=== PATIENT | male | born 1965 | race African-American/Black ===

== ENCOUNTER 2019-01-15 04:56 | Inpatient (IN) | payer SELFPAY ==
[2019-01-15] VITALS (11 sets, daily range): BP systolic 134–180; BP diastolic 79–98
[~2019-01-15] VITALS: Ht 182.9 cm; Wt 90.7 kg
--- NOTE | 2019-01-15 05:11 | PHYS DOC ---
Adult General Chief Complaint Chief Complaint: HEMATEMESIS/VOMITING BLOOD HPI HPI Patient is a 53 year old male presents with chief complaint of abdominal pain and throwing up. Apparently the patient ate some tuna but an hour later began to have some cramping epigastric pain radiating diffusely he threw up twice he thr ew up the tune and then there was some blood at the very end of the emesis. He said it would not have even come close to filling up a whole cup it was less than that but it look like a lot to him. Pain is persistent he actually thought he was given have diarrhea reset on the toilet and was straining very hard and some brown stool came out but then there was also some blood on the toilet paper when he wiped. Occasional alcohol denies past medical history denies any daily medications. (SHIRA TAI MD) Review of Systems Review of Systems Constitutional: Denies fever or chills [] Eyes: Denies change in visual acuity, redness, or eye pain [] HENT: Denies nasal congestion or sore throat [] Neurologic: Denies headache, focal weakness or sensory changes [] Endocrine: Denies polyuria or polydipsia [] All other systems were reviewed and found to be within normal limits, except as documented in this note. (SHIRA TAI MD) Current Medications Current Medications Current Medications Medications (Trade) Dose Ordered Sig/Jim Start Time Stop Time Status Last Admin Dose Admin Ciprofloxacin/ Dextrose 200 ml @ 200 mls/hr 1X ONCE 01/15/19 08:45 01/15/19 08:46 DC Fentanyl Citrate (Fentanyl 2ml Vial) 50 mcg 1X ONCE 01/15/19 05:30 01/15/19 05:34 DC 01/15/19 05:42 50 MCG Metronidazole 100 ml @ 100 mls/hr 1X ONCE 01/15/19 08:45 01/15/19 08:46 DC Morphine Sulfate (Morphine Sulfate) 4 mg 1X ONCE 01/15/19 07:45 01/15/19 07:46 DC 01/15/19 07:54 4 MG Multi-Ingredient Mouthwash/Gargle (Gi Cocktail) 20 ml 1X ONCE 01/15/19 05:30 01/15/19 05:34 DC 01/15/19 05:44 20 ML Ondansetron HCl (Zofran) 4 mg 1X ONCE 01/15/19 05:30 01/15/19 05:34 DC 01/15/19 05:40 4 MG Pantoprazole Sodium (PROTONIX VIAL for IV PUSH) 40 mg 1X ONCE 01/15/19 05:45 01/15/19 05:48 DC 01/15/19 06:30 40 MG Piperacillin Sod/ Tazobactam Sod (Zosyn Per Pharmacy) 1 each PRN DAILY PRN 01/15/19 08:45 UNV Piperacillin Sod/ Tazobactam Sod 3.375 gm/Sodium Chloride 50 ml @ 100 mls/hr 1X ONCE 01/15/19 09:00 01/15/19 09:29 (LYNDA MORALES MD) Allergies Allergies Allergies Coded Allergies Type Severity Reaction Last Updated Verified Fish Containing Products Allergy Intermediate 01/15/19 Yes Iodine and Iodide Containing Produc Allergy Intermediate 01/15/19 Yes shellfish derived Allergy Intermediate 01/15/19 Yes (LYNDA MORALES MD) Physical Exam Physical Exam Constitutional: Well developed, well nourished, mild distress, non-toxic appearance. [] HENT: Normocephalic, atraumatic, bilateral external ears normal, oropharynx moist, no oral exudates, nose normal. [] Eyes: PERRLA, EOMI, conjunctiva normal, no discharge. [] Neck: Normal range of motion, no tenderness, supple, no stridor. [] Cardiovascular:Heart rate regular rhythm, no murmur [] Lungs & Thorax: Bilateral breath sounds clear to auscultation [] Abdomen: Bowel sounds normal, soft, epigastric and right upper quadrant tenderness, no masses, no pulsatile masses. [] Rectal exam does show a visualized external hemorrhoid that looks like it may have recently bled digital exam does return a small amount of brownish blood- tinged stool. Sent to lab for testing Skin: Warm, dry, no erythema, no rash. [] Back: No tenderness, no CVA tenderness. [] Extremities: No tenderness, no cyanosis, no clubbing, ROM intact, no edema. [] Neurologic: Alert and oriented X 3, normal motor function, normal sensory function, no focal deficits noted. [] Psychologic: Affect normal, judgement normal, mood normal. [] (SHIRA TAI MD) Current Patient Data Vital Signs Vital Signs Date Time Temp Pulse Resp B/P (MAP) Pulse Ox O2 Delivery O2 Flow Rate FiO2 01/15/19 07:54 20 01/15/19 06:54 84 185/87 (119) 100 Room Air 01/15/19 05:00 98.5 98.5 (LYNDA MORALES MD) Lab Values Laboratory Tests Test 01/15/19 05:23 01/15/19 05:41 01/15/19 07:39 White Blood Count 8.8 x10^3/uL (4.0-11.0) Red Blood Count 4.77 x10^6/uL (4.30-5.70) Hemoglobin 14.8 g/dL (13.0-17.5) Hematocrit 43.0 % (39.0-53.0) Mean Corpuscular Volume 90 fL (79-100) Mean Corpuscular Hemoglobin 31 pg (25-35) Mean Corpuscular Hemoglobin Concent 35 g/dL (31-37) Red Cell Distribution Width 14.3 % (11.5-14.5) Platelet Count 284 x10^3/uL (140-400) Neutrophils (%) (Auto) 73 % (31-73) Lymphocytes (%) (Auto) 20 % (24-48) L Monocytes (%) (Auto) 6 % (0-9) Eosinophils (%) (Auto) 1 % (0-3) Basophils (%) (Auto) 1 % (0-3) Neutrophils # (Auto) 6.4 x10^3uL (1.8-7.7) Lymphocytes # (Auto) 1.7 x10^3/uL (1.0-4.8) Monocytes # (Auto) 0.5 x10^3/uL (0.0-1.1) Eosinophils # (Auto) 0.1 x10^3/uL (0.0-0.7) Basophils # (Auto) 0.0 x10^3/uL (0.0-0.2) Sodium Level 143 mmol/L (136-145) Potassium Level 3.6 mmol/L (3.5-5.1) Chloride Level 102 mmol/L (98-107) Carbon Dioxide Level 28 mmol/L (21-32) Anion Gap 13 (6-14) Blood Urea Nitrogen 14 mg/dL (8-26) Creatinine 0.9 mg/dL (0.7-1.3) Estimated GFR (Cockcroft-Gault) 106.4 BUN/Creatinine Ratio 16 (6-20) Glucose Level 122 mg/dL (70-99) H Calcium Level 9.5 mg/dL (8.5-10.1) Total Bilirubin 0.2 mg/dL (0.2-1.0) Aspartate Amino Transferase (AST) 8 U/L (15-37) L Alanine Aminotransferase (ALT) 26 U/L (16-63) Alkaline Phosphatase 63 U/L (46-116) Troponin I Quantitative < 0.017 ng/mL (0.000-0.055) Total Protein 7.3 g/dL (6.4-8.2) Albumin 4.2 g/dL (3.4-5.0) Albumin/Globulin Ratio 1.4 (1.0-1.7) Lipase 112 U/L (73-393) Stool Occult Blood Positive (NEG) Urine Collection Type Unknown Urine Color Yellow Urine Clarity Clear Urine pH 8.0 Urine Specific [place] 1.020 Urine Protein Negative mg/dL (NEG-TRACE) Urine Glucose (UA) Negative mg/dL (NEG) Urine Ketones (Stick) Negative mg/dL (NEG) Urine Blood Negative (NEG) Urine Nitrite Negative (NEG) Urine Bilirubin Negative (NEG) Urine Urobilinogen Dipstick 0.2 mg/dL (0.2 mg/dL) Urine Leukocyte Esterase Negative (NEG) Urine RBC 0 /HPF (0-2) Urine WBC Occ /HPF (0-4) Urine Amorphous Sediment Present /HPF Urine Bacteria 0 /HPF (0-FEW) Urine Opiates Screen Neg (NEG) Urine Methadone Screen Neg (NEG) Urine Barbiturates Neg (NEG) Urine Phencyclidine Screen Neg (NEG) Urine Amphetamine/Methamphetamine Neg (NEG) Urine Benzodiazepines Screen Neg (NEG) Urine Cocaine Screen Neg (NEG) Urine Cannabinoids Screen Pos (NEG) Urine Ethyl Alcohol Neg (NEG) Laboratory Tests 01/15/19 05:23 Laboratory Tests 01/15/19 05:23 (LYNDA MORALES MD) Lab Values Laboratory Tests Test 01/15/19 05:23 01/15/19 05:41 01/15/19 07:39 White Blood Count 8.8 x10^3/uL (4.0-11.0) Red Blood Count 4.77 x10^6/uL (4.30-5.70) Hemoglobin 14.8 g/dL (13.0-17.5) Hematocrit 43.0 % (39.0-53.0) Mean Corpuscular Volume 90 fL (79-100) Mean Corpuscular Hemoglobin 31 pg (25-35) Mean Corpuscular Hemoglobin Concent 35 g/dL (31-37) Red Cell Distribution Width 14.3 % (11.5-14.5) Platelet Count 284 x10^3/uL (140-400) Neutrophils (%) (Auto) 73 % (31-73) Lymphocytes (%) (Auto) 20 % (24-48) L Monocytes (%) (Auto) 6 % (0-9) Eosinophils (%) (Auto) 1 % (0-3) Basophils (%) (Auto) 1 % (0-3) Neutrophils # (Auto) 6.4 x10^3uL (1.8-7.7) Lymphocytes # (Auto) 1.7 x10^3/uL (1.0-4.8) Monocytes # (Auto) 0.5 x10^3/uL (0.0-1.1) Eosinophils # (Auto) 0.1 x10^3/uL (0.0-0.7) Basophils # (Auto) 0.0 x10^3/uL (0.0-0.2) Sodium Level 143 mmol/L (136-145) Potassium Level 3.6 mmol/L (3.5-5.1) Chloride Level 102 mmol/L (98-107) Carbon Dioxide Level 28 mmol/L (21-32) Anion Gap 13 (6-14) Blood Urea Nitrogen 14 mg/dL (8-26) Creatinine 0.9 mg/dL (0.7-1.3) Estimated GFR (Cockcroft-Gault) 106.4 BUN/Creatinine Ratio 16 (6-20) Glucose Level 122 mg/dL (70-99) H Calcium Level 9.5 mg/dL (8.5-10.1) Total Bilirubin 0.2 mg/dL (0.2-1.0) Aspartate Amino Transferase (AST) 8 U/L (15-37) L Alanine Aminotransferase (ALT) 26 U/L (16-63) Alkaline Phosphatase 63 U/L (46-116) Troponin I Quantitative < 0.017 ng/mL (0.000-0.055) Total Protein 7.3 g/dL (6.4-8.2) Albumin 4.2 g/dL (3.4-5.0) Albumin/Globulin Ratio 1.4 (1.0-1.7) Lipase 112 U/L (73-393) Stool Occult Blood Positive (NEG) Urine Collection Type Unknown Urine Color Yellow Urine Clarity Clear Urine pH 8.0 Urine Specific [place] 1.020 Urine Protein Negative mg/dL (NEG-TRACE) Urine Glucose (UA) Negative mg/dL (NEG) Urine Ketones (Stick) Negative mg/dL (NEG) Urine Blood Negative (NEG) Urine Nitrite Negative (NEG) Urine Bilirubin Negative (NEG) Urine Urobilinogen Dipstick 0.2 mg/dL (0.2 mg/dL) Urine Leukocyte Esterase Negative (NEG) Urine RBC 0 /HPF (0-2) Urine WBC Occ /HPF (0-4) Urine Amorphous Sediment Present /HPF Urine Bacteria 0 /HPF (0-FEW) Urine Opiates Screen Neg (NEG) Urine Methadone Screen Neg (NEG) Urine Barbiturates Neg (NEG) Urine Phencyclidine Screen Neg (NEG) Urine Amphetamine/Methamphetamine Neg (NEG) Urine Benzodiazepines Screen Neg (NEG) Urine Cocaine Screen Neg (NEG) Urine Cannabinoids Screen Pos (NEG) Urine Ethyl Alcohol Neg (NEG) Laboratory Tests 01/15/19 05:23 Laboratory Tests 01/15/19 05:23 (SHIRA TAI MD) EKG EKG []Normal sinus rhythm rate of 83 there are no obvious acute ischemic changes noted nonspecific ST changes noted inferiorly borderline ST elevation in V1 and V2 but I don't feel that this meets criteria for ST elevation AR. (SHIRA TAI MD) Radiology/Procedures Radiology/Procedures [] (SHIRA TAI MD) Radiology/Procedures PROCEDURE: CT ABDOMEN PELVIS WO CONTRAST INDICATION: Abdomen pain with rectal bleeding COMPARISON: None. TECHNIQUE: Axial CT images obtained through the abdomen and pelvis without intravenous contrast. One or more of the following individualized dose reduction techniques were utilized for this examination: 1. Automated exposure control; 2. Adjustment of the mA and/or kV according to patient size; 3. Use of iterative reconstruction technique. FINDINGS: Minimal linear opacities lung bases, could be atelectasis. Abdominal aorta is not aneurysmal. Scattered calcified plaque. Cystic lesion within the liver measuring 45 mm. Small pericardial fluid. Low-density lesion right lobe of the liver which may be cystic as well. Small amount of high density material within the gallbladder, could be stones or sludge. No definite peripancreatic fluid collection. Limited evaluation of pancreas without contrast. Spleen not enlarged. Left-sided nonobstructive renal stone measuring 7 mm. Dilatation of the left extrarenal pelvis and ureter Urinary bladder is partially distended. The prostate appears prominent in size. Mild prominence of the right extrarenal pelvis to a lesser degree. Portion of the left-sided colon wall appears mildly prominent but not very distended in this region. No definite periappendiceal inflammation. No dilated loops of bowel to suggest obstruction. Degenerative changes the spine including at L4-5 where there is endplate sclerosis as well as disc protrusion and osteophyte formation. Pars defect at L4 on the right. Multilevel central canal neural foraminal stenosis. IMPRESSION: 1. Left-sided hydronephrosis and hydroureter without a definite radiopaque obstructive ureter stone. Some possible causes include recently passed ureter stone as well as a distal ureter stricture or lesion. 2. Nonobstructive left renal stone. 3. Portion of the left side of the colon wall appears prominent but this is in a region with lack of distention. Could be secondary to an area of contraction however if there is high clinical concern a mild colitis not excluded. 4. There is some high density material within the gallbladder which could be from sludge or stones. PROCEDURE: ABDOMEN LTD Ultrasound of the right upper quadrant abdomen 01/15/2019 CLINICAL HISTORY: Right upper quadrant abdominal pain. Abnormal appearance of the gallbladder on CT scan. TECHNIQUE: A real-time ultrasound examination of the right upper quadrant of the abdomen was performed. Multiple images were obtained. FINDINGS: Comparison is made to the patient's CT scan of the abdomen performed earlier today. The gallbladder is distended. Echogenic gallstones are seen within the gallbladder. The gallbladder wall is thickened measuring 6 mm in thickness. A 1.6 cm gallstone is seen in the neck of the gallbladder. The patient is tender with palpation of the ultrasound transducer over the region of the gallbladder (positive sonographic [place] sign). These findings correspond to the abnormality seen on the patient's CT scan. They are consistent with acute cholecystitis. The liver is normal in size. The measures 18.3 cm in length. A 4.6 cm cyst is seen within the left lobe of the liver. The common hepatic duct measures 6 mm in diameter which is within the upper limits of normal. The visualized portions of the pancreas and right kidney are within normal limits. No free fluid is seen. IMPRESSION: Findings consistent with acute cholecystitis. (LYNDA MORALES MD) Course & Med Decision Making Course & Med Decision Making Pertinent Labs and Imaging studies reviewed. (See chart for details) []53-year-old male no past medical history presenting with epigastric pain as well as concern for hematemesis by history it does not sound like that much we will get hemoglobin rectal exam and go from there. hb normal rectal hemorrhoid seen, some maroon georgette colored stool sample noted, could be from hemorrhoidal bleeding. given degree of pain, will get ct a/p to go from there s/o to [facility] pending ct, labs and final disposition. (SHIRA TAI MD) Course & Med Decision Making 9:00 AM: The patient's condition remains stable. He has been reexamined, and has diffuse abdominal tenderness to palpation, although it is most prominent in the right upper quadrant. He is noted to be hypertensive. He states his blood pressure is always high when he hasn't checked, but does not currently have a P CP, he states he has had a kidney stone in the past, although he has no CVA tenderness on repeat exam today. The exact etiology of his hydronephrosis on CT, and the acuity of this, it is unclear at this time. I discussed test results with the patient, discussed the case with the hospitalist, who will admit for further treatment. Gen. surgery on-call has been paged as well. The hospitalist requested Zosyn for antibiotic coverage (LYNDA MORALES MD) Dragon Disclaimer Dragon Disclaimer This electronic medical record was generated, in whole or in part, using a voice recognition dictation system. (SHIRA TAI MD) Departure Departure Impression: Primary Impression: Acute cholecystitis Additional Impressions: Hypertension Hydronephrosis Hematemesis Disposition: ADMITTED INPATIENT Admitting Physician: HIMS (LYNDA MORALES MD) Condition: STABLE Scripts Oxycodone/Apap 5-325 (PERCOCET 5-325 MG TABLET ) 1 Each Tablet 1 TAB PO PRN Q4HRS PRN for MILD-MODERATE PAIN, #25 TAB Prov: DARIA HAYES MD 01/16/19 Problem Qualifiers SHIRA TAI MD Jan 15, 2019 05:11 LYNDA MORALES MD Jan 15, 2019 07:33
[2019-01-15] MEDS ORDERED: ONDANSETRON PF 4 MG/2 ML VIAL. IV ONE (05:30)
[2019-01-15] MEDS ORDERED: fentaNYL PF VIAL 100 MCG/2 ML VIAL IV ONE (05:30)
[2019-01-15] MEDS ORDERED: LIDO:MAALOX 1:1 20 ML SINGLE DOSE. SWSW ONE (05:30)
[2019-01-15 05:43] LABS: BASO % 1 % (0-3); EOS # 0.1 x10^3/uL (0.0-0.7); EOS % 1 % (0-3); HEMOGLOBIN 14.8 g/dL (13.0-17.5); LYMPH # 1.7 x10^3/uL (1.0-4.8); LYMPH % 20 % (24-48); MEAN CORPUSCULAR HEMOGLOBIN 31 pg (25-35); MEAN CORPUSCULAR HGB CONC 35 g/dL (31-37); MEAN CORPUSCULAR VOLUME 90 fL (79-100); MONO # 0.5 x10^3/uL (0.0-1.1); MONO % 6 % (0-9); NEUT # 6.4 x10^3uL (1.8-7.7); NEUT % 73 % (31-73); PLATELET COUNT 284 x10^3/uL (140-400); RED BLOOD COUNT 4.77 x10^6/uL (4.30-5.70); RED CELL DISTRIBUTION WIDTH 14.3 % (11.5-14.5); WHITE BLOOD COUNT 8.8 x10^3/uL (4.0-11.0)
[2019-01-15] MEDS ORDERED: PANTOPRAZOLE IV PUSH 40 MG VIAL. IVP ONE (05:45)
[2019-01-15 05:52] LABS: CALCIUM 9.5 mg/dL (8.5-10.1); CREATININE 0.9 mg/dL (0.7-1.3); GFR 106.4; POTASSIUM 3.6 mmol/L (3.5-5.1)
--- NOTE | 2019-01-15 05:54 | EKG ---
[facility] [address] [place] [address] Test Date: 2019-01-15 Test Time: 05:29:30 Pat Name: IMAN MCCAIN Department: Room: Gender: M Office Support Clerk: : 1965 Requested By: SHIRA TAI Order Number: [id number] Reading MD: Measurements Intervals [place] Rate: 83 P: 76 FL: 164 QRS: 64 QRSD: 86 T: 59 QT: 382 QTc: 449 Interpretive Statements SINUS RHYTHM QRS(T) CONTOUR ABNORMALITY CONSIDER ANTEROSEPTAL MYOCARDIAL DAMAGE POSSIBLY ABNORMAL ECG RI6.01 Unconfirmed report No previous ECG available for comparison
[2019-01-15 05:59] LABS: ALBUMIN 4.2 g/dL (3.4-5.0); ALBUMIN/GLOBULIN RATIO 1.4 (1.0-1.7); TOTAL BILIRUBIN 0.2 mg/dL (0.2-1.0); TOTAL PROTEIN 7.3 g/dL (6.4-8.2)
[2019-01-15 06:02] LABS: FECAL OB PT POSITIVE (NEG)
--- NOTE | 2019-01-15 07:06 | RAD ---
INDICATION: Abdomen pain with rectal bleeding COMPARISON: None. TECHNIQUE: Axial CT images obtained through the abdomen and pelvis without intravenous contrast. One or more of the following individualized dose reduction techniques were utilized for this examination: 1. Automated exposure control; 2. Adjustment of the mA and/or kV according to patient size; 3. Use of iterative reconstruction technique. FINDINGS: Minimal linear opacities lung bases, could be atelectasis. Abdominal aorta is not aneurysmal. Scattered calcified plaque. Cystic lesion within the liver measuring 45 mm. Small pericardial fluid. Low-density lesion right lobe of the liver which may be cystic as well. Small amount of high density material within the gallbladder, could be stones or sludge. No definite peripancreatic fluid collection. Limited evaluation of pancreas without contrast. Spleen not enlarged. Left-sided nonobstructive renal stone measuring 7 mm. Dilatation of the left extrarenal pelvis and ureter Urinary bladder is partially distended. The prostate appears prominent in size. Mild prominence of the right extrarenal pelvis to a lesser degree. Portion of the left-sided colon wall appears mildly prominent but not very distended in this region. No definite periappendiceal inflammation. No dilated loops of bowel to suggest obstruction. Degenerative changes the spine including at L4-5 where there is endplate sclerosis as well as disc protrusion and osteophyte formation. Pars defect at L4 on the right. Multilevel central canal neural foraminal stenosis. IMPRESSION: 1. Left-sided hydronephrosis and hydroureter without a definite radiopaque obstructive ureter stone. Some possible causes include recently passed ureter stone as well as a distal ureter stricture or lesion. 2. Nonobstructive left renal stone. 3. Portion of the left side of the colon wall appears prominent but this is in a region with lack of distention. Could be secondary to an area of contraction however if there is high clinical concern a mild colitis not excluded. 4. There is some high density material within the gallbladder which could be from sludge or stones. Electronically signed by: Miguelangel José MD (01/15/2019 7:03 AM) [id number]
[2019-01-15] MEDS ORDERED: MORPHINE SULFATE 4 MG/ML VIAL. IV ONE (07:45)
[2019-01-15 07:46] LABS: BILIRUBIN,URINE NEGATIVE (NEG); CLARITY,URINE CLEAR; COLOR,URINE YELLOW; NITRITE,URINE NEGATIVE (NEG); PROTEIN,URINE NEGATIVE (NEG-TRACE); UROBILINOGEN,URINE 0.2 mg/dL (0.2 mg/dL)
[2019-01-15 07:54] LABS: BARBITURATES NEG (NEG); BENZODIAZEPINES NEG (NEG); CANNABINOIDS POS (NEG); COCAINE NEG (NEG); METHADONE NEG (NEG); OPIATES NEG (NEG); PHENCYCLIDINE NEG (NEG)
[2019-01-15 07:56] LABS: AMPHETAMINE/METHAMPHETAMINE NEG (NEG)
[2019-01-15 07:58] LABS: AMORPHOUS SEDIMENT,UR PRESENT /HPF; BACTERIA,URINE 0 /HPF (0-FEW); RBC,URINE 0 /HPF (0-2); WBC,URINE OCC /HPF (0-4)
--- NOTE | 2019-01-15 08:25 | RAD ---
Ultrasound of the right upper quadrant abdomen 01/15/2019 CLINICAL HISTORY: Right upper quadrant abdominal pain. Abnormal appearance of the gallbladder on CT scan. TECHNIQUE: A real-time ultrasound examination of the right upper quadrant of the abdomen was performed. Multiple images were obtained. FINDINGS: Comparison is made to the patient's CT scan of the abdomen performed earlier today. The gallbladder is distended. Echogenic gallstones are seen within the gallbladder. The gallbladder wall is thickened measuring 6 mm in thickness. A 1.6 cm gallstone is seen in the neck of the gallbladder. The patient is tender with palpation of the ultrasound transducer over the region of the gallbladder (positive sonographic [place] sign). These findings correspond to the abnormality seen on the patient's CT scan. They are consistent with acute cholecystitis. The liver is normal in size. The measures 18.3 cm in length. A 4.6 cm cyst is seen within the left lobe of the liver. The common hepatic duct measures 6 mm in diameter which is within the upper limits of normal. The visualized portions of the pancreas and right kidney are within normal limits. No free fluid is seen. IMPRESSION: Findings consistent with acute cholecystitis. Electronically signed by: Vitor Tim MD (01/15/2019 8:22 AM) [id number]
[2019-01-15] MEDS ORDERED: CIPROFLOXACIN 400MG PREMIX 200 ML IV ONE (08:45)
[2019-01-15] MEDS ORDERED: PIP/TAZO PER PHARMACY MC PRN (08:45)
--- NOTE | 2019-01-15 08:51 | PDOC1 ---
History and Physical Date of Admission Date of Admission DATE: 01/15/19 TIME: 08:51 Identification/Chief Complaint Chief Complaint Abdominal pain Source Source: Patient History of Present Illness History of Present Illness Mr Walker is a 53yo M w/ PMHx nephrolithiasis, smoker who p/w nausea for the past 2 weeks that became intensified last night while he was at work. He felt worse at 0100 and tried to eat tuna, however he vomiting and had multiple bouts of bloody emesis. He has been having hard stool, some straining--noted some blood. He was tachycardic with fever and chills. Fecal occult positive. CT abdomen showed left hydronephrosis and concerning gallbladder, which was confirmed on US as cholecystitis and he was started on empiric zosyn and general surgery was called in consultation. Past Medical History Cardiovascular: No pertinent hx Pulmonary: No pertinent hx GI: No pertinent hx Heme/Onc: No pertinent hx Hepatobiliary: No pertinent hx Psych: No pertinent hx Musculoskeletal: low back pain Rheumatologic: No pertinent hx Infectious disease: No pertinent hx ENT: No pertinent hx Renal/: No pertinent hx Endocrine: No pertinent hx Dermatology: No pertinent hx Past Surgical History Past Surgical History: Other (Lumbar discectomy) Family History Family History: Cancer (Colon cancer at 39 - Brother), Diabetes Family History: Parent (Diabetes - mother) Social History Smoke: 1 pack per day ALCOHOL: rare Drugs: Marijuana Current Problem List Problem List Problems Medical Problems: (1) Abdominal pain Status: Acute Current Medications Current Medications Current Medications Multi-Ingredient Mouthwash/Gargle (Gi Cocktail) 20 ml 1X ONCE SWSW Last administered on 01/15/19at 05:44; Start 01/15/19 at 05:30; Stop 01/15/19 at 05:34; Status DC Fentanyl Citrate (Fentanyl 2ml Vial) 50 mcg 1X ONCE IV Last administered on 01/15/19at 05:42; Start 01/15/19 at 05:30; Stop 01/15/19 at 05:34; Status DC Ondansetron HCl (Zofran) 4 mg 1X ONCE IV Last administered on 01/15/19at 05:40; Start 01/15/19 at 05:30; Stop 01/15/19 at 05:34; Status DC Pantoprazole Sodium (PROTONIX VIAL for IV PUSH) 40 mg 1X ONCE IVP Last administered on 01/15/19at 06:30; Start 01/15/19 at 05:45; Stop 01/15/19 at 05:48; Status DC Morphine Sulfate (Morphine Sulfate) 4 mg 1X ONCE IV Last administered on 01/15/19at 07:54; Start 01/15/19 at 07:45; Stop 01/15/19 at 07:46; Status DC Ciprofloxacin/ Dextrose 200 ml @ 200 mls/hr 1X ONCE IV ; Start 01/15/19 at 08:45; Stop 01/15/19 at 08:46; Status DC Metronidazole 100 ml @ 100 mls/hr 1X ONCE IV ; Start 01/15/19 at 08:45; Stop 01/15/19 at 08:46; Status DC Piperacillin Sod/ Tazobactam Sod (Zosyn Per Pharmacy) 1 each PRN DAILY PRN [facility] SEE COMMENTS; Start 01/15/19 at 08:45; Status UNV Allergies Allergies: Coded Allergies: Fish Containing Products (Verified Allergy, Intermediate, 01/15/19) Iodine and Iodide Containing Produc (Verified Allergy, Intermediate, 01/15/19) shellfish derived (Verified Allergy, Intermediate, 01/15/19) ROS General: YES: Chills, Fatigue, Malaise, Appetite; No: Night Sweats, Other PSYCHOLOGICAL ROS: No: Anxiety, Behavioral Disorder, Concentration difficultie, Decreased libido, Depression, Disorientation, Hallucinations, Hostility, Irritablity, Memory difficulties, Mood Swings, Obsessive thoughts, Physical abuse, Sexual abuse, Sleep disturbances, Suicidal ideation, Other Eyes: No Blurry vision, No Decreased vision, No Double vision, No Dry eyes, No Excessive tearing, No Eye Pain, No Itchy Eyes, No Loss of vision, No Photophobia, No Scotomata, No Uses contacts, No Uses glasses, No Other HEENT: No: Heacaches, Visual Changes, Hearing change, Nasal congestion, Nasal discharge, Oral lesions, Sinus pain, Sore Throat, Epistaxis, Sneezing, Snoring, Tinnitus, Vertigo, Vocal changes, Other ALLERGY AND IMMUNOLOGY: No: Hives, Insect Bite Sensitivity, Itchy/Watery Eyes, Nasal Congestion, Post Nasal Drip, Seasonal Allergies, Other Hematological and Lymphatic: No: Bleeding Problems, Blood Clots, Blood Transfusions, Brusing, Night Sweats, Pallor, Swollen Lymph Nodes, Other ENDOCRINE: No: Breast Changes, Galactorrhea, Hair Pattern Changes, Hot Flashes, Malaise/lethargy, Mood Swings, Palpitations, Polydipsia/polyuria, Skin Changes, Temperature Intolerance, Unexpected Weight Changes, Other Breast: No New/Changing Breast Lumps, No Nipple changes, No Nipple discharge, No Other Respiratory: No: Cough, Hemoptysis, Orthopnea, Pleuritic Pain, Shortness of breath, SOB with excertion, Sputum Changes, Stridor, Tachypnea, Wheezing, Other Cardiovascular: No Chest Pain, No Palpitations, No Orthopnea, No Paroxysmal Noc. Dyspnea, No Edema, No Lt Headedness, No Other Gastrointestinal: Yes Nausea, Yes Vomiting, Yes Abdominal Pain, Yes Constipation; No Diarrhea, No Melena, No Hematochezia, No Other Genitourinary: No Dysuria, No Frequency, No Incontinence, No Hematuria, No Retention, No Discharge, No Urgency, No Pain, No Flank Pain, No Other, No , No , No , No , No , No , No Musculoskeletal: No Gait Disturbance, No Joint Pain, No Joint Stiffness, No Joint Swelling, No Muscle Pain, No Muscular Weakness, No Pain In:, No Swelling In:, No Other Neurological: No Behavorial Changes, No Bowel/Bladder ControlChng, No Confusion, No Dizziness, No Gait Disturbance, No Headaches, No Impaired Coord/balance, No Memory Loss, No Numbness/Tingling, No Seizures, No Speech Problems, No Tremors, No Visual Changes, No Weakness, No Other Skin: No Dry Skin, No Eczema, No Hair Changes, No Lumps, No Mole Changes, No Mottling, No Nail Changes, No Pruritus, No Rash, No Skin Lesion Changes, No Other, No Acne Physical Exam General: Alert, Oriented X3, Cooperative, No acute distress HEENT: Atraumatic, PERRLA, EOMI, Mucous membr. moist/pink Lungs: Clear to auscultation, Normal air movement Heart: S1S2, RRR, no gallops, no murmurs Abdomen: Normal bowel sounds, Soft, No hepatosplenomegaly, No masses, Other (RUQ tender, positive rebound) Rectal Exam: hemorrhoids Extremities: No clubbing, No cyanosis, No edema, Normal pulses, No tenderness/swelling Skin: No rashes, No breakdown, No significant lesion Neuro: Normal gait, Normal speech, Strength at 5/5 X4 ext, Normal tone, Sensation intact, Cranial nerves 3-12 NL, Reflexes 2+ Psych/Mental Status: Mental status NL, Mood NL Vitals Vitals Vital Signs Date Time Temp Pulse Resp B/P (MAP) Pulse Ox O2 Delivery O2 Flow Rate FiO2 01/15/19 07:54 20 01/15/19 06:54 84 185/87 (119) 100 Room Air 01/15/19 05:00 98.5 98.5 Labs Labs Laboratory Tests Test 01/15/19 05:23 01/15/19 05:41 01/15/19 07:39 White Blood Count 8.8 x10^3/uL (4.0-11.0) Red Blood Count 4.77 x10^6/uL (4.30-5.70) Hemoglobin 14.8 g/dL (13.0-17.5) Hematocrit 43.0 % (39.0-53.0) Mean Corpuscular Volume 90 fL (79-100) Mean Corpuscular Hemoglobin 31 pg (25-35) Mean Corpuscular Hemoglobin Concent 35 g/dL (31-37) Red Cell Distribution Width 14.3 % (11.5-14.5) Platelet Count 284 x10^3/uL (140-400) Neutrophils (%) (Auto) 73 % (31-73) Lymphocytes (%) (Auto) 20 % (24-48) Monocytes (%) (Auto) 6 % (0-9) Eosinophils (%) (Auto) 1 % (0-3) Basophils (%) (Auto) 1 % (0-3) Neutrophils # (Auto) 6.4 x10^3uL (1.8-7.7) Lymphocytes # (Auto) 1.7 x10^3/uL (1.0-4.8) Monocytes # (Auto) 0.5 x10^3/uL (0.0-1.1) Eosinophils # (Auto) 0.1 x10^3/uL (0.0-0.7) Basophils # (Auto) 0.0 x10^3/uL (0.0-0.2) Sodium Level 143 mmol/L (136-145) Potassium Level 3.6 mmol/L (3.5-5.1) Chloride Level 102 mmol/L (98-107) Carbon Dioxide Level 28 mmol/L (21-32) Anion Gap 13 (6-14) Blood Urea Nitrogen 14 mg/dL (8-26) Creatinine 0.9 mg/dL (0.7-1.3) Estimated GFR (Cockcroft-Gault) 106.4 BUN/Creatinine Ratio 16 (6-20) Glucose Level 122 mg/dL (70-99) Calcium Level 9.5 mg/dL (8.5-10.1) Total Bilirubin 0.2 mg/dL (0.2-1.0) Aspartate Amino Transf (AST/SGOT) 8 U/L (15-37) Alanine Aminotransferase (ALT/SGPT) 26 U/L (16-63) Alkaline Phosphatase 63 U/L (46-116) Troponin I Quantitative < 0.017 ng/mL (0.000-0.055) Total Protein 7.3 g/dL (6.4-8.2) Albumin 4.2 g/dL (3.4-5.0) Albumin/Globulin Ratio 1.4 (1.0-1.7) Lipase 112 U/L (73-393) Stool Occult Blood Positive (NEG) Urine Collection Type Unknown Urine Color Yellow Urine Clarity Clear Urine pH 8.0 Urine Specific [place] 1.020 Urine Protein Negative mg/dL (NEG-TRACE) Urine Glucose (UA) Negative mg/dL (NEG) Urine Ketones (Stick) Negative mg/dL (NEG) Urine Blood Negative (NEG) Urine Nitrite Negative (NEG) Urine Bilirubin Negative (NEG) Urine Urobilinogen Dipstick 0.2 mg/dL (0.2 mg/dL) Urine Leukocyte Esterase Negative (NEG) Urine RBC 0 /HPF (0-2) Urine WBC Occ /HPF (0-4) Urine Amorphous Sediment Present /HPF Urine Bacteria 0 /HPF (0-FEW) Urine Opiates Screen Neg (NEG) Urine Methadone Screen Neg (NEG) Urine Barbiturates Neg (NEG) Urine Phencyclidine Screen Neg (NEG) Urine Amphetamine/Methamphetamine Neg (NEG) Urine Benzodiazepines Screen Neg (NEG) Urine Cocaine Screen Neg (NEG) Urine Cannabinoids Screen Pos (NEG) Urine Ethyl Alcohol Neg (NEG) Laboratory Tests Test 01/15/19 05:23 01/15/19 05:41 01/15/19 07:39 White Blood Count 8.8 x10^3/uL (4.0-11.0) Red Blood Count 4.77 x10^6/uL (4.30-5.70) Hemoglobin 14.8 g/dL (13.0-17.5) Hematocrit 43.0 % (39.0-53.0) Mean Corpuscular Volume 90 fL (79-100) Mean Corpuscular Hemoglobin 31 pg (25-35) Mean Corpuscular Hemoglobin Concent 35 g/dL (31-37) Red Cell Distribution Width 14.3 % (11.5-14.5) Platelet Count 284 x10^3/uL (140-400) Neutrophils (%) (Auto) 73 % (31-73) Lymphocytes (%) (Auto) 20 % (24-48) Monocytes (%) (Auto) 6 % (0-9) Eosinophils (%) (Auto) 1 % (0-3) Basophils (%) (Auto) 1 % (0-3) Neutrophils # (Auto) 6.4 x10^3uL (1.8-7.7) Lymphocytes # (Auto) 1.7 x10^3/uL (1.0-4.8) Monocytes # (Auto) 0.5 x10^3/uL (0.0-1.1) Eosinophils # (Auto) 0.1 x10^3/uL (0.0-0.7) Basophils # (Auto) 0.0 x10^3/uL (0.0-0.2) Sodium Level 143 mmol/L (136-145) Potassium Level 3.6 mmol/L (3.5-5.1) Chloride Level 102 mmol/L (98-107) Carbon Dioxide Level 28 mmol/L (21-32) Anion Gap 13 (6-14) Blood Urea Nitrogen 14 mg/dL (8-26) Creatinine 0.9 mg/dL (0.7-1.3) Estimated GFR (Cockcroft-Gault) 106.4 BUN/Creatinine Ratio 16 (6-20) Glucose Level 122 mg/dL (70-99) Calcium Level 9.5 mg/dL (8.5-10.1) Total Bilirubin 0.2 mg/dL (0.2-1.0) Aspartate Amino Transf (AST/SGOT) 8 U/L (15-37) Alanine Aminotransferase (ALT/SGPT) 26 U/L (16-63) Alkaline Phosphatase 63 U/L (46-116) Troponin I Quantitative < 0.017 ng/mL (0.000-0.055) Total Protein 7.3 g/dL (6.4-8.2) Albumin 4.2 g/dL (3.4-5.0) Albumin/Globulin Ratio 1.4 (1.0-1.7) Lipase 112 U/L (73-393) Stool Occult Blood Positive (NEG) Urine Collection Type Unknown Urine Color Yellow Urine Clarity Clear Urine pH 8.0 Urine Specific [place] 1.020 Urine Protein Negative mg/dL (NEG-TRACE) Urine Glucose (UA) Negative mg/dL (NEG) Urine Ketones (Stick) Negative mg/dL (NEG) Urine Blood Negative (NEG) Urine Nitrite Negative (NEG) Urine Bilirubin Negative (NEG) Urine Urobilinogen Dipstick 0.2 mg/dL (0.2 mg/dL) Urine Leukocyte Esterase Negative (NEG) Urine RBC 0 /HPF (0-2) Urine WBC Occ /HPF (0-4) Urine Amorphous Sediment Present /HPF Urine Bacteria 0 /HPF (0-FEW) Urine Opiates Screen Neg (NEG) Urine Methadone Screen Neg (NEG) Urine Barbiturates Neg (NEG) Urine Phencyclidine Screen Neg (NEG) Urine Amphetamine/Methamphetamine Neg (NEG) Urine Benzodiazepines Screen Neg (NEG) Urine Cocaine Screen Neg (NEG) Urine Cannabinoids Screen Pos (NEG) Urine Ethyl Alcohol Neg (NEG) Images Images CT Abdomen/Pelvis - 1. Left-sided hydronephrosis and hydroureter without a definite radiopaque obstructive ureter stone. Some possible causes include recently passed ureter stone as well as a distal ureter stricture or lesion. 2. Nonobstructive left renal stone. 3. Portion of the left side of the colon wall appears prominent but this is in a region with lack of distention. Could be secondary to an area of contraction however if there is high clinical concern a mild colitis not excluded. 4. There is some high density material within the gallbladder which could be from sludge or stones. RUQ US - -Findings consistent with acute cholecystitis. VTE Prophylaxis Ordered VTE Prophylaxis Devices: Yes VTE Pharmacological Prophylaxi: No Assessment/Plan Assessment/Plan A/P: Nausea and vomiting - with ruq pain, confirmed cholecystitis, given antibiotics, surgery consulted to OR likely today. Nausea and pain control IV with zofran and morphine Sepsis - from gallbladder infection, cont empiric zosyn, given IVF resuscitation Left hydronephrosis - with non-obstructing nephrolithiasis, has previously passed a stone, likely has strictures secondary to this, will f/u with Urology outpatient Smoker - offered nicotine patch, he will quit cold turkey Occult blood positive - with a brother diagnosed with colon cancer at 39, he is aware he needs screening colonoscopy, he and his planned this outpatient FEN - NPO PPX - SCDs FULL CODE Dispo - med/surg for acute cholecystitis, will likely go to OR today, no further testing prior to surgery is necessary, he is low pre op cardiac risk SHADE WASHINGTON MD Jan 15, 2019 08:51
[2019-01-15] MEDS ORDERED: PIPERACILLIN/TAZOBACTAM 3.375 GM in IV NORMAL SALINE 50ML 50 ML IV ONE (09:00)
[2019-01-15] MEDS ORDERED: hydrALAZINE 20 MG/ML VIAL. IVP ONE (09:00)
--- NOTE | 2019-01-15 10:25 | NUR ---
Pt. here from ER via tone, placed in bed, family at bedside. Rates pain at 1/10 no pain meds available at this time. Page placed to . FREDO Sinha in to see pt. notified of no pain meds available.
--- NOTE | 2019-01-15 10:47 | PDOC2 ---
DEREK CALDERON EDGE SAWYER 01/15/19 1047: CONSULT Date of Consult Date of Consult DATE: 01/15/19 TIME: 10:38 Reason for Consult Reason for Consult: cholecystitis Referring Physician Referring Physician: ER Identification/Chief Complaint Chief Complaint abdominal pain Source Source: Chart review, Patient History of Present Illness Reason for Visit: Acute onset of upper abdominal pain. Associated nausea and emesis. Reports had some hematemesis after vomiting episodes started. Reports had tuna for dinner at work around 1am. One stool, hard, some straining--noted some blood Past Medical History Past Medical History denies any pertinent medical hx Past Surgical History Past Surgical History: Other (back surgery) Family History Family History: Other (no signficant hx ) Social History <1 pack per day ALCOHOL: rare Lives: with Family Current Problem List Problem List Problems Medical Problems: (1) Abdominal pain Status: Acute (2) Acute cholecystitis Status: Acute (3) Hematemesis Status: Acute (4) Hydronephrosis Status: Acute (5) Hypertension Status: Acute Current Medications Current Medications Current Medications Multi-Ingredient Mouthwash/Gargle (Gi Cocktail) 20 ml 1X ONCE SWSW Last administered on 01/15/19at 05:44; Start 01/15/19 at 05:30; Stop 01/15/19 at 05:34; Status DC Fentanyl Citrate (Fentanyl 2ml Vial) 50 mcg 1X ONCE IV Last administered on 01/15/19at 05:42; Start 01/15/19 at 05:30; Stop 01/15/19 at 05:34; Status DC Ondansetron HCl (Zofran) 4 mg 1X ONCE IV Last administered on 01/15/19at 05:40; Start 01/15/19 at 05:30; Stop 01/15/19 at 05:34; Status DC Pantoprazole Sodium (PROTONIX VIAL for IV PUSH) 40 mg 1X ONCE IVP Last administered on 01/15/19at 06:30; Start 01/15/19 at 05:45; Stop 01/15/19 at 05:48; Status DC Morphine Sulfate (Morphine Sulfate) 4 mg 1X ONCE IV Last administered on 01/15/19at 07:54; Start 01/15/19 at 07:45; Stop 01/15/19 at 07:46; Status DC Ciprofloxacin/ Dextrose 200 ml @ 200 mls/hr 1X ONCE IV ; Start 01/15/19 at 08:45; Stop 01/15/19 at 08:46; Status DC Metronidazole 100 ml @ 100 mls/hr 1X ONCE IV ; Start 01/15/19 at 08:45; Stop 01/15/19 at 08:46; Status DC Piperacillin Sod/ Tazobactam Sod (Zosyn Per Pharmacy) 1 each PRN DAILY PRN [facility] SEE COMMENTS; Start 01/15/19 at 08:45 Piperacillin Sod/ Tazobactam Sod 3.375 gm/Sodium Chloride 50 ml @ 100 mls/hr 1X ONCE IV Last administered on 01/15/19at 09:23; Start 01/15/19 at 09:00; Stop 01/15/19 at 09:29; Status DC Hydralazine HCl (Apresoline Inj) 10 mg 1X ONCE IVP Last administered on 01/15/19at 09:24; Start 01/15/19 at 09:00; Stop 01/15/19 at 09:03; Status DC Piperacillin Sod/ Tazobactam Sod 3.375 gm/Sodium Chloride 50 ml @ 100 mls/hr Q6HRS IV ; Start 01/15/19 at 17:00 Allergies Allergies: Coded Allergies: Fish Containing Products (Verified Allergy, Intermediate, 01/15/19) Iodine and Iodide Containing Produc (Verified Allergy, Intermediate, 01/15/19) shellfish derived (Verified Allergy, Intermediate, 01/15/19) ROS General: No: Chills, Other (fevers) PSYCHOLOGICAL ROS: No: Anxiety, Depression Eyes: No Blurry vision, No Double vision HEENT: No: Heacaches, Sore Throat Hematological and Lymphatic: No: Bleeding Problems, Blood Clots Respiratory: YES: Shortness of breath (due to acute abdominal pain); No: Cough Cardiovascular: yes Chest Pain, yes Palpitations Gastrointestinal: Yes Other (see hpi) Genitourinary: No Dysuria, No Hematuria Musculoskeletal: No Joint Pain, No Muscle Pain Neurological: No Confusion, No Impaired Coord/balance Skin: No Pruritus, No Rash Physical Exam General: Alert, Oriented X3, Cooperative, No acute distress HEENT: PERRLA, Mucous membr. moist/pink Lungs: Clear to auscultation, Normal air movement Heart: Regular rate, Normal S1, Normal S2, No murmurs Abdomen: Soft, Other (moderate TTP epigastric and RUQ) Extremities: No clubbing, No cyanosis Skin: No rashes, No breakdown Neuro: Normal gait, Normal speech Psych/Mental Status: Mental status NL, Mood NL MUSCULOSKELETAL: No joint tenderness, No deformity Vitals VITALS Vital Signs Date Time Temp Pulse Resp B/P (MAP) Pulse Ox O2 Delivery O2 Flow Rate FiO2 01/15/19 10:02 166/77 (106) 01/15/19 09:30 86 27 100 Room Air 01/15/19 05:00 98.5 98.5 Labs Labs Laboratory Tests Test 01/15/19 05:23 01/15/19 05:41 01/15/19 07:39 White Blood Count 8.8 x10^3/uL (4.0-11.0) Red Blood Count 4.77 x10^6/uL (4.30-5.70) Hemoglobin 14.8 g/dL (13.0-17.5) Hematocrit 43.0 % (39.0-53.0) Mean Corpuscular Volume 90 fL (79-100) Mean Corpuscular Hemoglobin 31 pg (25-35) Mean Corpuscular Hemoglobin Concent 35 g/dL (31-37) Red Cell Distribution Width 14.3 % (11.5-14.5) Platelet Count 284 x10^3/uL (140-400) Neutrophils (%) (Auto) 73 % (31-73) Lymphocytes (%) (Auto) 20 % (24-48) Monocytes (%) (Auto) 6 % (0-9) Eosinophils (%) (Auto) 1 % (0-3) Basophils (%) (Auto) 1 % (0-3) Neutrophils # (Auto) 6.4 x10^3uL (1.8-7.7) Lymphocytes # (Auto) 1.7 x10^3/uL (1.0-4.8) Monocytes # (Auto) 0.5 x10^3/uL (0.0-1.1) Eosinophils # (Auto) 0.1 x10^3/uL (0.0-0.7) Basophils # (Auto) 0.0 x10^3/uL (0.0-0.2) Sodium Level 143 mmol/L (136-145) Potassium Level 3.6 mmol/L (3.5-5.1) Chloride Level 102 mmol/L (98-107) Carbon Dioxide Level 28 mmol/L (21-32) Anion Gap 13 (6-14) Blood Urea Nitrogen 14 mg/dL (8-26) Creatinine 0.9 mg/dL (0.7-1.3) Estimated GFR (Cockcroft-Gault) 106.4 BUN/Creatinine Ratio 16 (6-20) Glucose Level 122 mg/dL (70-99) Calcium Level 9.5 mg/dL (8.5-10.1) Total Bilirubin 0.2 mg/dL (0.2-1.0) Aspartate Amino Transf (AST/SGOT) 8 U/L (15-37) Alanine Aminotransferase (ALT/SGPT) 26 U/L (16-63) Alkaline Phosphatase 63 U/L (46-116) Troponin I Quantitative < 0.017 ng/mL (0.000-0.055) Total Protein 7.3 g/dL (6.4-8.2) Albumin 4.2 g/dL (3.4-5.0) Albumin/Globulin Ratio 1.4 (1.0-1.7) Lipase 112 U/L (73-393) Stool Occult Blood Positive (NEG) Urine Collection Type Unknown Urine Color Yellow Urine Clarity Clear Urine pH 8.0 Urine Specific [place] 1.020 Urine Protein Negative mg/dL (NEG-TRACE) Urine Glucose (UA) Negative mg/dL (NEG) Urine Ketones (Stick) Negative mg/dL (NEG) Urine Blood Negative (NEG) Urine Nitrite Negative (NEG) Urine Bilirubin Negative (NEG) Urine Urobilinogen Dipstick 0.2 mg/dL (0.2 mg/dL) Urine Leukocyte Esterase Negative (NEG) Urine RBC 0 /HPF (0-2) Urine WBC Occ /HPF (0-4) Urine Amorphous Sediment Present /HPF Urine Bacteria 0 /HPF (0-FEW) Urine Opiates Screen Neg (NEG) Urine Methadone Screen Neg (NEG) Urine Barbiturates Neg (NEG) Urine Phencyclidine Screen Neg (NEG) Urine Amphetamine/Methamphetamine Neg (NEG) Urine Benzodiazepines Screen Neg (NEG) Urine Cocaine Screen Neg (NEG) Urine Cannabinoids Screen Pos (NEG) Urine Ethyl Alcohol Neg (NEG) Laboratory Tests Test 01/15/19 05:23 01/15/19 05:41 01/15/19 07:39 White Blood Count 8.8 x10^3/uL (4.0-11.0) Red Blood Count 4.77 x10^6/uL (4.30-5.70) Hemoglobin 14.8 g/dL (13.0-17.5) Hematocrit 43.0 % (39.0-53.0) Mean Corpuscular Volume 90 fL (79-100) Mean Corpuscular Hemoglobin 31 pg (25-35) Mean Corpuscular Hemoglobin Concent 35 g/dL (31-37) Red Cell Distribution Width 14.3 % (11.5-14.5) Platelet Count 284 x10^3/uL (140-400) Neutrophils (%) (Auto) 73 % (31-73) Lymphocytes (%) (Auto) 20 % (24-48) Monocytes (%) (Auto) 6 % (0-9) Eosinophils (%) (Auto) 1 % (0-3) Basophils (%) (Auto) 1 % (0-3) Neutrophils # (Auto) 6.4 x10^3uL (1.8-7.7) Lymphocytes # (Auto) 1.7 x10^3/uL (1.0-4.8) Monocytes # (Auto) 0.5 x10^3/uL (0.0-1.1) Eosinophils # (Auto) 0.1 x10^3/uL (0.0-0.7) Basophils # (Auto) 0.0 x10^3/uL (0.0-0.2) Sodium Level 143 mmol/L (136-145) Potassium Level 3.6 mmol/L (3.5-5.1) Chloride Level 102 mmol/L (98-107) Carbon Dioxide Level 28 mmol/L (21-32) Anion Gap 13 (6-14) Blood Urea Nitrogen 14 mg/dL (8-26) Creatinine 0.9 mg/dL (0.7-1.3) Estimated GFR (Cockcroft-Gault) 106.4 BUN/Creatinine Ratio 16 (6-20) Glucose Level 122 mg/dL (70-99) Calcium Level 9.5 mg/dL (8.5-10.1) Total Bilirubin 0.2 mg/dL (0.2-1.0) Aspartate Amino Transf (AST/SGOT) 8 U/L (15-37) Alanine Aminotransferase (ALT/SGPT) 26 U/L (16-63) Alkaline Phosphatase 63 U/L (46-116) Troponin I Quantitative < 0.017 ng/mL (0.000-0.055) Total Protein 7.3 g/dL (6.4-8.2) Albumin 4.2 g/dL (3.4-5.0) Albumin/Globulin Ratio 1.4 (1.0-1.7) Lipase 112 U/L (73-393) Stool Occult Blood Positive (NEG) Urine Collection Type Unknown Urine Color Yellow Urine Clarity Clear Urine pH 8.0 Urine Specific [place] 1.020 Urine Protein Negative mg/dL (NEG-TRACE) Urine Glucose (UA) Negative mg/dL (NEG) Urine Ketones (Stick) Negative mg/dL (NEG) Urine Blood Negative (NEG) Urine Nitrite Negative (NEG) Urine Bilirubin Negative (NEG) Urine Urobilinogen Dipstick 0.2 mg/dL (0.2 mg/dL) Urine Leukocyte Esterase Negative (NEG) Urine RBC 0 /HPF (0-2) Urine WBC Occ /HPF (0-4) Urine Amorphous Sediment Present /HPF Urine Bacteria 0 /HPF (0-FEW) Urine Opiates Screen Neg (NEG) Urine Methadone Screen Neg (NEG) Urine Barbiturates Neg (NEG) Urine Phencyclidine Screen Neg (NEG) Urine Amphetamine/Methamphetamine Neg (NEG) Urine Benzodiazepines Screen Neg (NEG) Urine Cocaine Screen Neg (NEG) Urine Cannabinoids Screen Pos (NEG) Urine Ethyl Alcohol Neg (NEG) Assessment/Plan Assessment/Plan acute cholecystitis hematemesis CT mentions mild colitis, no diarrhea plans for lap temo today ANDRZEJ MAC MD 01/15/19 1137: CONSULT Assessment/Plan Assessment/Plan Pt seen and examined by myself: 53 year old male with severe upper abdominal pain, started overnight; above HPI noted; PMH/PSH/SH/ROS as above; exam: alert, a bit lethargic, appears ill, lungs clear, heart RR and R, abdomen tender RUQ with guarding, ext neg for edema. Labs/xrays reviewed: A/P) Suspect acute cholecystitis, plan for lap temo this afternoon. Details and risks discussed with the patient. DEREK CALDERON APRN Jan 15, 2019 10:47 ANDRZEJ MAC MD Jan 15, 2019 11:37
[2019-01-15] MEDS: IV RINGERS,LACTATED 1000ML 1,000 ML IV SCH ×2 (10:49→14:16)
[2019-01-15] MEDS: MORPHINE SULFATE 2 MG/ML VIAL. IV PRN ×2 (10:50→17:43)
[2019-01-15] MEDS: ONDANSETRON PF 4 MG/2 ML VIAL. IV PRN ×2 (10:50→13:49)
[2019-01-15] MEDS ORDERED: BUPIVAC MPF-EPI 0.5%-1:200000 30 ML VIAL. ONE ×2 (12:49→14:00)
[2019-01-15] MEDS ORDERED: SURGICEL HEMOSTAT 4X8 EACH. ONE ×3 (12:50→14:42)
[2019-01-15] MEDS ORDERED: IOHEXOL 300 MG/ML 50 ML VIAL. ONE ×2 (12:50→14:00)
[2019-01-15] MEDS ORDERED: PROPOFOL 20 ML IV ONE (13:43)
[2019-01-15] MEDS ORDERED: ONDANSETRON PF 4 MG/2 ML VIAL. ONE ×2 (13:43→14:00)
[2019-01-15] MEDS ORDERED: DEXAMETHASONE SOD PHOS 4 MG/ML VIAL ONE ×2 (13:43→14:00)
[2019-01-15] MEDS ORDERED: LIDOCAINE 2% PF 5 ML VIAL. ONE ×2 (13:43→14:00)
[2019-01-15] MEDS ORDERED: ROCURONIUM 50 MG/5 ML VIAL. ONE ×2 (13:44→14:00)
[2019-01-15] MEDS ORDERED: MIDAZOLAM HCL/PF 2 MG/2 ML VIAL. ONE ×2 (13:45→14:00)
[2019-01-15] MEDS ORDERED: fentaNYL PF VIAL 100 MCG/2 ML VIAL ONE ×3 (13:46→14:40)
[2019-01-15] MEDS ORDERED: PROPOFOL 10 MG/ML (20ML) VIAL. IV ONE (14:00)
[2019-01-15] MEDS ORDERED: SUCCINYLCHOLINE 200 MG/10 ML VIAL. ONE ×2 (14:00→14:03)
[2019-01-15] MEDS ORDERED: NEOSTIGMINE METHYLSULFATE 5 MG/5 ML SYRINGE. ONE (14:53)
[2019-01-15] MEDS ORDERED: GLYCOPYRROLATE 1 MG/5 ML VIAL. ONE (14:53)
[2019-01-15] MEDS ORDERED: IOHEXOL 300 MG/ML 100ML VIAL. INT CAT ONE (14:57)
[2019-01-15] MEDS ORDERED: BUPIVAC MPF-EPI 0.5%-1:200000 30 ML VIAL. INJ ONE (14:57)
[2019-01-15] MEDS ORDERED: SURGICEL HEMOSTAT 4X8 EACH. TP ONE (15:42)
--- NOTE | 2019-01-15 16:10 | RAD ---
EXAM: Intraoperative cholangiogram. HISTORY: Cholecystectomy, intraoperative cholangiogram. COMPARISON: None. FINDINGS: 5 fluoroscopic images are obtained intraoperatively during injection of the cystic duct remnant after cholecystectomy. There are no filling defects to suggest retained stones. The common duct is not dilated. Fluoroscopy time 0.6 minutes. IMPRESSION: No evidence of retained stones. Electronically signed by: Malia Addison MD (01/15/2019 4:08 PM) [facility]
[2019-01-15] MEDS ORDERED: oxyCODONE/APAP 5/325 1 TAB TABLET PO PRN (16:15)
--- NOTE | 2019-01-15 16:15 | PDOC4 ---
Operative Note Operative Note Operative Note: Preoperative Diagnosis: Acute cholecystitis. Postoperative Diagnosis: Same Procedure: Laparoscopic cholecystectomy with intraoperative cholangiogram Surgeons: [facility] Physician: Anika FERRARO Anesthesia: Gen. Estimated Blood Loss: 50 mL Specimen: Gallbladder to pathology Drains: None Complications: None Indications: The patient is a 53-year-old male who reported to the hospital with severe onset of upper abdominal pain. His evaluation is consistent with acute cholecystitis. Surgical treatment was offered by means of a laparoscopic cholecystectomy. The risks of surgery were discussed which include bleeding, infection, bile duct injury, bile leak, pain, the potential for additional surgeries or procedures. The patient understands and would like to proceed. Description: The patient was taken to the operating room and laid supine on the operating table. General anesthesia was performed. The abdomen was prepped with ChloraPrep and draped in a standard surgical fashion. A small infraumbilical incision was made with a scalpel. The Veress needle was then inserted and a pneumoperitoneum was then created. A 5 mm trocar was then inserted and the laparoscope was introduced. In the upper midabdomen an 11 mm trocar was inserted and in the right abdomen two 5 mm trochars were inserted. The gallbladder was markedly distended with significant inflammatory change and pericholecystic inflammation. Approximately 50 mL of bilious fluid was aspirated from the gallbladder providing decompression. The gallbladder was retracted cephalad. The cystic duct was dissected free from surrounding tissues. One clip was placed on the duct near the gallbladder junction. An opening was made in the duct and a cholangiocatheter placed within and secured with a clip. Using contrast dye and fluoroscopy an intraoperative cholangiogram was performed that appeared unremarkable. The clip and catheter were then withdrawn. Two clips were placed on the cystic duct and it was divided. The cystic artery was then identified, dissected free, doubly clipped and divided as well. The gallbladder was then mobilized away from the liver with cautery. This proved challenging due to the marked inflammatory reaction which obscured his normal tissue planes. Following complete mobilization of the gallbladder a Surgicel pack was placed on the fossa to assist with oozing. The gallbladder was then placed in an endoscopic bag and extracted at the superior trocar site. The fascia and skin incisions had to be extended due to the large stones and edematous gallbladder. The fascia there was closed with 0 Vicryl sutures. All blood and irrigation fluid was suctioned and hemostasis was good. The remaining ports were removed and the pneumoperitoneum was relieved. The skin incisions were closed using 4-0 Monocryl suture. Steri-Strips and dressings were then applied. The patient tolerated the procedure well and was sent to the recovery room in stable condition. At the end of the case all counts were correct. ANDRZEJ MAC MD Jan 15, 2019 16:15
--- NOTE | 2019-01-15 17:37 | NUR ---
Pt. back from PACU, family at bedside. Rates pain at 7/10, refused intervention at this time. States he feels sore, denies nausea. 4 lap sited CDI.
[2019-01-15] MEDS: PIPERACILLIN/TAZOBACTAM 3.375 GM in IV NORMAL SALINE 50ML 50 ML IV SCH (17:43)
[2019-01-16] MEDS: PIPERACILLIN/TAZOBACTAM 3.375 GM in IV NORMAL SALINE 50ML 50 ML IV SCH ×4 (00:17→17:16)
[2019-01-16 03:00] VITALS: BP_SYST 135; BP_SYST 95; BP_DIAS 55; BP_DIAS 80
[2019-01-16] MEDS: IV RINGERS,LACTATED 1000ML 1,000 ML IV SCH ×2 (03:02→17:00)
[2019-01-16] MEDS: oxyCODONE/APAP 5/325 1 TAB TABLET PO PRN ×3 (06:17→17:15)
[2019-01-16 07:00] VITALS: BP 121/76
--- NOTE | 2019-01-16 10:46 | NUR ---
SW following for discharge planning. Discussed with RN, pt is from home with , PT/OT ordered due to pt reporting he can't get up. Pt is self pay, SW to provide self pay resource packet prior to discharge.
[2019-01-16 11:00] VITALS: BP 134/79
[2019-01-16 15:00] VITALS: BP 127/80
[2019-01-16] MEDS ORDERED: POLYETHYLENE GLYCOL 3350 17 GM PACKET. PO ONE (15:00)
[2019-01-16] MEDS ORDERED: OXYC1TAB15 PO (15:08)
--- NOTE | 2019-01-16 15:09 | PDOC ---
PROGRESS NOTES Chief Complaint Chief Complaint Nausea and vomiting - with ruq pain, confirmed cholecystitis, given antibiotics, surgery consulted to OR likely today. Nausea and pain control IV with zofran and morphine Sepsis - from gallbladder infection, cont empiric zosyn, given IVF resuscitation Left hydronephrosis - with non-obstructing nephrolithiasis, has previously passed a stone, likely has strictures secondary to this, will f/u with Urology outpatient Smoker - offered nicotine patch, he will quit cold turkey Occult blood positive - with a brother diagnosed with colon cancer at 39, he is aware he needs screening colonoscopy, he and his planned this outpatient History of Present Illness History of Present Illness s/p OR order placed for DC in AM cont current constipated, add meds Vitals Vitals Vital Signs Date Time Temp Pulse Resp B/P (MAP) Pulse Ox O2 Delivery O2 Flow Rate FiO2 01/16/19 13:34 Room Air 01/16/19 11:00 98.5 82 18 134/79 (97) 97 98.5 01/15/19 16:52 10 Physical Exam General: Alert, Oriented X3, Cooperative, No acute distress Heart: Regular rate, Normal S1, Normal S2, No murmurs Abdomen: Normal bowel sounds, Soft, No hepatosplenomegaly, No masses, Other (RUQ tender, positive rebound) Extremities: No clubbing, No cyanosis, No edema, Normal pulses, No tenderness/swelling Skin: No rashes, No breakdown, No significant lesion Assessment and Plan Assessmemt and Plan Problems Medical Problems: (1) Abdominal pain Status: Acute (2) Acute cholecystitis Status: Acute (3) Hematemesis Status: Acute (4) Hydronephrosis Status: Acute (5) Hypertension Status: Acute Comment Review of Relevant I have reviewed the following items hilda (where applicable) has been applied. Labs Laboratory Tests Test 01/15/19 05:23 01/15/19 05:41 01/15/19 07:39 White Blood Count 8.8 x10^3/uL (4.0-11.0) Red Blood Count 4.77 x10^6/uL (4.30-5.70) Hemoglobin 14.8 g/dL (13.0-17.5) Hematocrit 43.0 % (39.0-53.0) Mean Corpuscular Volume 90 fL (79-100) Mean Corpuscular Hemoglobin 31 pg (25-35) Mean Corpuscular Hemoglobin Concent 35 g/dL (31-37) Red Cell Distribution Width 14.3 % (11.5-14.5) Platelet Count 284 x10^3/uL (140-400) Neutrophils (%) (Auto) 73 % (31-73) Lymphocytes (%) (Auto) 20 % (24-48) Monocytes (%) (Auto) 6 % (0-9) Eosinophils (%) (Auto) 1 % (0-3) Basophils (%) (Auto) 1 % (0-3) Neutrophils # (Auto) 6.4 x10^3uL (1.8-7.7) Lymphocytes # (Auto) 1.7 x10^3/uL (1.0-4.8) Monocytes # (Auto) 0.5 x10^3/uL (0.0-1.1) Eosinophils # (Auto) 0.1 x10^3/uL (0.0-0.7) Basophils # (Auto) 0.0 x10^3/uL (0.0-0.2) Sodium Level 143 mmol/L (136-145) Potassium Level 3.6 mmol/L (3.5-5.1) Chloride Level 102 mmol/L (98-107) Carbon Dioxide Level 28 mmol/L (21-32) Anion Gap 13 (6-14) Blood Urea Nitrogen 14 mg/dL (8-26) Creatinine 0.9 mg/dL (0.7-1.3) Estimated GFR (Cockcroft-Gault) 106.4 BUN/Creatinine Ratio 16 (6-20) Glucose Level 122 mg/dL (70-99) Calcium Level 9.5 mg/dL (8.5-10.1) Total Bilirubin 0.2 mg/dL (0.2-1.0) Aspartate Amino Transf (AST/SGOT) 8 U/L (15-37) Alanine Aminotransferase (ALT/SGPT) 26 U/L (16-63) Alkaline Phosphatase 63 U/L (46-116) Troponin I Quantitative < 0.017 ng/mL (0.000-0.055) Total Protein 7.3 g/dL (6.4-8.2) Albumin 4.2 g/dL (3.4-5.0) Albumin/Globulin Ratio 1.4 (1.0-1.7) Lipase 112 U/L (73-393) Stool Occult Blood Positive (NEG) Urine Collection Type Unknown Urine Color Yellow Urine Clarity Clear Urine pH 8.0 Urine Specific [place] 1.020 Urine Protein Negative mg/dL (NEG-TRACE) Urine Glucose (UA) Negative mg/dL (NEG) Urine Ketones (Stick) Negative mg/dL (NEG) Urine Blood Negative (NEG) Urine Nitrite Negative (NEG) Urine Bilirubin Negative (NEG) Urine Urobilinogen Dipstick 0.2 mg/dL (0.2 mg/dL) Urine Leukocyte Esterase Negative (NEG) Urine RBC 0 /HPF (0-2) Urine WBC Occ /HPF (0-4) Urine Amorphous Sediment Present /HPF Urine Bacteria 0 /HPF (0-FEW) Urine Opiates Screen Neg (NEG) Urine Methadone Screen Neg (NEG) Urine Barbiturates Neg (NEG) Urine Phencyclidine Screen Neg (NEG) Urine Amphetamine/Methamphetamine Neg (NEG) Urine Benzodiazepines Screen Neg (NEG) Urine Cocaine Screen Neg (NEG) Urine Cannabinoids Screen Pos (NEG) Urine Ethyl Alcohol Neg (NEG) Medications Current Medications Multi-Ingredient Mouthwash/Gargle (Gi Cocktail) 20 ml 1X ONCE SWSW Last administered on 01/15/19at 05:44; Start 01/15/19 at 05:30; Stop 01/15/19 at 05:34; Status DC Fentanyl Citrate (Fentanyl 2ml Vial) 50 mcg 1X ONCE IV Last administered on 01/15/19at 05:42; Start 01/15/19 at 05:30; Stop 01/15/19 at 05:34; Status DC Ondansetron HCl (Zofran) 4 mg 1X ONCE IV Last administered on 01/15/19at 05:40; Start 01/15/19 at 05:30; Stop 01/15/19 at 05:34; Status DC Pantoprazole Sodium (PROTONIX VIAL for IV PUSH) 40 mg 1X ONCE IVP Last administered on 01/15/19at 06:30; Start 01/15/19 at 05:45; Stop 01/15/19 at 05:48; Status DC Morphine Sulfate (Morphine Sulfate) 4 mg 1X ONCE IV Last administered on 01/15/19at 07:54; Start 01/15/19 at 07:45; Stop 01/15/19 at 07:46; Status DC Ciprofloxacin/ Dextrose 200 ml @ 200 mls/hr 1X ONCE IV ; Start 01/15/19 at 08:45; Stop 01/15/19 at 08:46; Status DC Metronidazole 100 ml @ 100 mls/hr 1X ONCE IV ; Start 01/15/19 at 08:45; Stop 01/15/19 at 08:46; Status DC Piperacillin Sod/ Tazobactam Sod (Zosyn Per Pharmacy) 1 each PRN DAILY PRN MC SEE COMMENTS; Start 01/15/19 at 08:45 Piperacillin Sod/ Tazobactam Sod 3.375 gm/Sodium Chloride 50 ml @ 100 mls/hr 1X ONCE IV Last administered on 01/15/19at 09:23; Start 01/15/19 at 09:00; Stop 01/15/19 at 09:29; Status DC Hydralazine HCl (Apresoline Inj) 10 mg 1X ONCE IVP Last administered on 01/15/19at 09:24; Start 01/15/19 at 09:00; Stop 01/15/19 at 09:03; Status DC Piperacillin Sod/ Tazobactam Sod 3.375 gm/Sodium Chloride 50 ml @ 100 mls/hr Q6HRS IV Last administered on 01/16/19at 13:35; Start 01/15/19 at 17:00 Ondansetron HCl (Zofran) 4 mg PRN Q6HRS PRN IV NAUSEA/VOMITING Last administered on 01/15/19at 13:49; Start 01/15/19 at 10:45 Morphine Sulfate (Morphine Sulfate) 2 mg PRN Q2HR PRN IV PAIN Last administered on 01/15/19at 17:43; Start 01/15/19 at 10:45 Ringer's Solution 1,000 ml @ 100 mls/hr Q10H IV Last administered on 01/16/19at 03:02; Start 01/15/19 at 11:00 Iohexol (Omnipaque 300 Mg/ml) 100 ml STK-MED ONCE INT CAT Last administered on 01/15/19at 14:57; Start 01/15/19 at 14:57; Stop 01/15/19 at 15:35; Status DC Bupivacaine HCl/ Epinephrine Bitart (Sensorcain-Mpf Epi 0.5%-1:153931) 30 ml STK-MED ONCE INJ Last administered on 01/15/19at 14:57; Start 01/15/19 at 14:57; Stop 01/15/19 at 15:35; Status DC Propofol (Diprivan) 200 mg STK-MED ONCE IV ; Start 01/15/19 at 14:00; Stop 01/15/19 at 15:36; Status DC Lidocaine HCl (Lidocaine Pf 2% Vial) 5 ml STK-MED ONCE .ROUTE ; Start 01/15/19 at 14:00; Stop 01/15/19 at 15:36; Status DC Dexamethasone Sodium Phosphate (Decadron) 4 mg STK-MED ONCE .ROUTE ; Start 01/15/19 at 14:00; Stop 01/15/19 at 15:36; Status DC Ondansetron HCl (Zofran) 4 mg STK-MED ONCE .ROUTE ; Start 01/15/19 at 14:00; Stop 01/15/19 at 15:36; Status DC Rocuronium [place] (Zemuron) 50 mg STK-MED ONCE .ROUTE ; Start 01/15/19 at 14:00; Stop 01/15/19 at 15:36; Status DC Midazolam HCl (Versed) 2 mg STK-MED ONCE .ROUTE ; Start 01/15/19 at 14:00; Stop 01/15/19 at 15:36; Status DC Fentanyl Citrate (Fentanyl 2ml Vial) 100 mcg STK-MED ONCE .ROUTE ; Start 01/15/19 at 14:00; Stop 01/15/19 at 15:36; Status DC Succinylcholine Chloride (Anectine) 200 mg STK-MED ONCE .ROUTE ; Start 01/15/19 at 14:00; Stop 01/15/19 at 15:36; Status DC Bupivacaine HCl/ Epinephrine Bitart (Sensorcain-Mpf Epi 0.5%-1:297348) 30 ml STK-MED ONCE .ROUTE ; Start 01/15/19 at 14:00; Stop 01/15/19 at 15:36; Status DC Iohexol (Omnipaque 300 Mg/ml) 50 ml STK-MED ONCE .ROUTE ; Start 01/15/19 at 14:00; Stop 01/15/19 at 15:36; Status DC Cellulose (Surgicel Hemostat 4x8) 1 each STK-MED ONCE .ROUTE Last administered on 01/15/19at 15:40; Start 01/15/19 at 14:00; Stop 01/15/19 at 15:37; Status DC Cellulose (Surgicel Hemostat 4x8) 1 each STK-MED ONCE TP Last administered on 01/15/19at 15:42; Start 01/15/19 at 15:42; Stop 01/15/19 at 15:45; Status DC Oxycodone/ Acetaminophen (Percocet 5/325) 1 tab PRN Q4HRS PRN PO MILD-MODERATE PAIN; Start 01/15/19 at 16:15 Oxycodone/ Acetaminophen (Percocet 5/325) 2 tab PRN Q4HRS PRN PO SEVERE PAIN Last administered on 01/16/19at 13:34; Start 01/15/19 at 16:30 Propofol 20 ml @ As Directed STK-MED ONCE IV ; Start 01/15/19 at 13:43; Stop 01/15/19 at 18:02; Status DC Lidocaine HCl (Lidocaine Pf 2% Vial) 5 ml STK-MED ONCE .ROUTE ; Start 01/15/19 at 13:43; Stop 01/15/19 at 18:02; Status DC Dexamethasone Sodium Phosphate (Decadron) 4 mg STK-MED ONCE .ROUTE ; Start 01/15/19 at 13:43; Stop 01/15/19 at 18:02; Status DC Ondansetron HCl (Zofran) 4 mg STK-MED ONCE .ROUTE ; Start 01/15/19 at 13:43; Stop 01/15/19 at 18:02; Status DC Rocuronium [place] (Zemuron) 50 mg STK-MED ONCE .ROUTE ; Start 01/15/19 at 13:44; Stop 01/15/19 at 18:02; Status DC Midazolam HCl (Versed) 2 mg STK-MED ONCE .ROUTE ; Start 01/15/19 at 13:45; Stop 01/15/19 at 18:02; Status DC Fentanyl Citrate (Fentanyl 2ml Vial) 100 mcg STK-MED ONCE .ROUTE ; Start 01/15/19 at 13:46; Stop 01/15/19 at 18:02; Status DC Bupivacaine HCl/ Epinephrine Bitart (Sensorcain-Mpf Epi 0.5%-1:902366) 30 ml STK-MED ONCE .ROUTE ; Start 01/15/19 at 12:49; Stop 01/15/19 at 18:02; Status DC Iohexol (Omnipaque 300 Mg/ml) 50 ml STK-MED ONCE .ROUTE ; Start 01/15/19 at 12:50; Stop 01/15/19 at 18:02; Status DC Cellulose (Surgicel Hemostat 4x8) 1 each STK-MED ONCE .ROUTE ; Start 01/15/19 at 12:50; Stop 01/15/19 at 18:02; Status DC Succinylcholine Chloride (Anectine) 200 mg STK-MED ONCE .ROUTE ; Start 01/15/19 at 14:03; Stop 01/15/19 at 18:02; Status DC Fentanyl Citrate (Fentanyl 2ml Vial) 100 mcg STK-MED ONCE .ROUTE ; Start 01/15/19 at 14:40; Stop 01/15/19 at 18:03; Status DC Neostigmine Methylsulfate (Neostigmine Methylsulfate) 5 mg STK-MED ONCE .ROUTE ; Start 01/15/19 at 14:53; Stop 01/15/19 at 18:03; Status DC Glycopyrrolate (Robinul) 1 mg STK-MED ONCE .ROUTE ; Start 01/15/19 at 14:53; Stop 01/15/19 at 18:03; Status DC Cellulose (Surgicel Hemostat 4x8) 1 each STK-MED ONCE .ROUTE ; Start 01/15/19 at 14:42; Stop 01/15/19 at 18:04; Status DC Vitals/I & O Vital Sign - Last 24 Hours 01/15/19 01/15/19 01/15/19 01/15/19 16:20 16:20 16:37 16:52 Temp 99.2 99.2 99.2 99.2 Pulse 108 90 90 Resp 18 22 20 B/P (MAP) 175/83 158/81 155/78 Pulse Ox 97 100 99 O2 Delivery Simple Mask Mask Simple Mask Simple Mask O2 Flow Rate 10 10 10 10 01/15/19 01/15/19 01/15/19 01/15/19 17:07 17:22 17:43 17:45 Temp 99.2 99.2 99.2 99.2 Pulse 93 91 Resp 20 22 18 B/P (MAP) 140/81 141/79 154/84 (107) Pulse Ox 96 94 96 O2 Delivery Room Air Room Air Room Air Room Air 01/15/19 01/15/19 01/15/19 01/15/19 18:00 18:15 18:30 18:45 Resp 18 18 18 18 B/P (MAP) 144/81 (102) 168/96 (120) 144/84 (104) 140/98 (112) Pulse Ox 97 96 96 95 O2 Delivery Room Air Room Air Room Air Room Air 01/15/19 01/15/19 01/15/19 01/15/19 19:08 19:15 19:45 19:50 Temp 99.3 99.3 Pulse 94 105 Resp 18 18 B/P (MAP) 140/86 (104) 134/79 (97) Pulse Ox 98 97 O2 Delivery Room Air Room Air Room Air 01/15/19 01/15/19 01/15/19 01/16/19 20:45 21:45 23:00 03:00 Temp 98.6 98.5 98.6 98.5 Pulse 105 100 102 78 Resp 16 16 B/P (MAP) 141/87 (105) 139/90 (106) 139/86 (103) 135/80 (98) Pulse Ox 96 95 97 95 O2 Delivery Room Air Room Air 01/16/19 01/16/19 01/16/19 01/16/19 06:17 07:00 07:17 07:40 Temp 98.5 98.5 Pulse 71 Resp 20 18 20 B/P (MAP) 121/76 (91) Pulse Ox 96 O2 Delivery Room Air Room Air Room Air Room Air 01/16/19 01/16/19 11:00 13:34 Temp 98.5 98.5 Pulse 82 Resp 18 B/P (MAP) 134/79 (97) Pulse Ox 97 O2 Delivery Room Air Room Air Intake and Output 01/15/19 01/15/19 01/16/19 15:00 23:00 07:00 Intake Total 50 ml 520 ml 1940 ml Output Total 300 ml 400 ml Balance 50 ml 220 ml 1540 ml DARIA HAYES MD Jan 16, 2019 15:09
--- NOTE | 2019-01-16 16:16 | PDOC ---
PROGRESS NOTES Subjective Subjective doing well, much better Objective Objective Vital Signs Date Time Temp Pulse Resp B/P (MAP) Pulse Ox O2 Delivery O2 Flow Rate FiO2 01/16/19 13:34 Room Air 01/16/19 11:00 98.5 82 18 134/79 (97) 97 98.5 01/15/19 16:52 10 Intake and Output 01/16/19 07:00 Intake Total 2510 ml Output Total 700 ml Balance 1810 ml Intake Oral 760 ml IV Total 1250 ml Other 500 ml Output Urine Total 650 ml Estimated Blood Loss 50 ml # Voids 1 Physical Exam Abdomen: Soft Assessment Assessment Problems Medical Problems: (1) Abdominal pain Status: Acute (2) Acute cholecystitis Status: Acute (3) Hematemesis Status: Acute (4) Hydronephrosis Status: Acute (5) Hypertension Status: Acute Plan Plan of Care Agree with discharge tomorrow Comment Review of Relevant I have reviewed the following items hilda (where applicable) has been applied. Labs Laboratory Tests Test 01/15/19 05:23 01/15/19 05:41 01/15/19 07:39 White Blood Count 8.8 x10^3/uL (4.0-11.0) Red Blood Count 4.77 x10^6/uL (4.30-5.70) Hemoglobin 14.8 g/dL (13.0-17.5) Hematocrit 43.0 % (39.0-53.0) Mean Corpuscular Volume 90 fL (79-100) Mean Corpuscular Hemoglobin 31 pg (25-35) Mean Corpuscular Hemoglobin Concent 35 g/dL (31-37) Red Cell Distribution Width 14.3 % (11.5-14.5) Platelet Count 284 x10^3/uL (140-400) Neutrophils (%) (Auto) 73 % (31-73) Lymphocytes (%) (Auto) 20 % (24-48) Monocytes (%) (Auto) 6 % (0-9) Eosinophils (%) (Auto) 1 % (0-3) Basophils (%) (Auto) 1 % (0-3) Neutrophils # (Auto) 6.4 x10^3uL (1.8-7.7) Lymphocytes # (Auto) 1.7 x10^3/uL (1.0-4.8) Monocytes # (Auto) 0.5 x10^3/uL (0.0-1.1) Eosinophils # (Auto) 0.1 x10^3/uL (0.0-0.7) Basophils # (Auto) 0.0 x10^3/uL (0.0-0.2) Sodium Level 143 mmol/L (136-145) Potassium Level 3.6 mmol/L (3.5-5.1) Chloride Level 102 mmol/L (98-107) Carbon Dioxide Level 28 mmol/L (21-32) Anion Gap 13 (6-14) Blood Urea Nitrogen 14 mg/dL (8-26) Creatinine 0.9 mg/dL (0.7-1.3) Estimated GFR (Cockcroft-Gault) 106.4 BUN/Creatinine Ratio 16 (6-20) Glucose Level 122 mg/dL (70-99) Calcium Level 9.5 mg/dL (8.5-10.1) Total Bilirubin 0.2 mg/dL (0.2-1.0) Aspartate Amino Transf (AST/SGOT) 8 U/L (15-37) Alanine Aminotransferase (ALT/SGPT) 26 U/L (16-63) Alkaline Phosphatase 63 U/L (46-116) Troponin I Quantitative < 0.017 ng/mL (0.000-0.055) Total Protein 7.3 g/dL (6.4-8.2) Albumin 4.2 g/dL (3.4-5.0) Albumin/Globulin Ratio 1.4 (1.0-1.7) Lipase 112 U/L (73-393) Stool Occult Blood Positive (NEG) Urine Collection Type Unknown Urine Color Yellow Urine Clarity Clear Urine pH 8.0 Urine Specific [place] 1.020 Urine Protein Negative mg/dL (NEG-TRACE) Urine Glucose (UA) Negative mg/dL (NEG) Urine Ketones (Stick) Negative mg/dL (NEG) Urine Blood Negative (NEG) Urine Nitrite Negative (NEG) Urine Bilirubin Negative (NEG) Urine Urobilinogen Dipstick 0.2 mg/dL (0.2 mg/dL) Urine Leukocyte Esterase Negative (NEG) Urine RBC 0 /HPF (0-2) Urine WBC Occ /HPF (0-4) Urine Amorphous Sediment Present /HPF Urine Bacteria 0 /HPF (0-FEW) Urine Opiates Screen Neg (NEG) Urine Methadone Screen Neg (NEG) Urine Barbiturates Neg (NEG) Urine Phencyclidine Screen Neg (NEG) Urine Amphetamine/Methamphetamine Neg (NEG) Urine Benzodiazepines Screen Neg (NEG) Urine Cocaine Screen Neg (NEG) Urine Cannabinoids Screen Pos (NEG) Urine Ethyl Alcohol Neg (NEG) Medications Current Medications Multi-Ingredient Mouthwash/Gargle (Gi Cocktail) 20 ml 1X ONCE SWSW Last administered on 01/15/19at 05:44; Start 01/15/19 at 05:30; Stop 01/15/19 at 05:34; Status DC Fentanyl Citrate (Fentanyl 2ml Vial) 50 mcg 1X ONCE IV Last administered on 01/15/19at 05:42; Start 01/15/19 at 05:30; Stop 01/15/19 at 05:34; Status DC Ondansetron HCl (Zofran) 4 mg 1X ONCE IV Last administered on 01/15/19at 05:40; Start 01/15/19 at 05:30; Stop 01/15/19 at 05:34; Status DC Pantoprazole Sodium (PROTONIX VIAL for IV PUSH) 40 mg 1X ONCE IVP Last administered on 01/15/19at 06:30; Start 01/15/19 at 05:45; Stop 01/15/19 at 05:48; Status DC Morphine Sulfate (Morphine Sulfate) 4 mg 1X ONCE IV Last administered on 01/15/19at 07:54; Start 01/15/19 at 07:45; Stop 01/15/19 at 07:46; Status DC Ciprofloxacin/ Dextrose 200 ml @ 200 mls/hr 1X ONCE IV ; Start 01/15/19 at 08:45; Stop 01/15/19 at 08:46; Status DC Metronidazole 100 ml @ 100 mls/hr 1X ONCE IV ; Start 01/15/19 at 08:45; Stop 01/15/19 at 08:46; Status DC Piperacillin Sod/ Tazobactam Sod (Zosyn Per Pharmacy) 1 each PRN DAILY PRN MC SEE COMMENTS; Start 01/15/19 at 08:45 Piperacillin Sod/ Tazobactam Sod 3.375 gm/Sodium Chloride 50 ml @ 100 mls/hr 1X ONCE IV Last administered on 01/15/19at 09:23; Start 01/15/19 at 09:00; Stop 01/15/19 at 09:29; Status DC Hydralazine HCl (Apresoline Inj) 10 mg 1X ONCE IVP Last administered on 01/15/19at 09:24; Start 01/15/19 at 09:00; Stop 01/15/19 at 09:03; Status DC Piperacillin Sod/ Tazobactam Sod 3.375 gm/Sodium Chloride 50 ml @ 100 mls/hr Q6HRS IV Last administered on 01/16/19at 13:35; Start 01/15/19 at 17:00 Ondansetron HCl (Zofran) 4 mg PRN Q6HRS PRN IV NAUSEA/VOMITING Last administered on 01/15/19 13:49; Start 01/15/19 at 10:45 Morphine Sulfate (Morphine Sulfate) 2 mg PRN Q2HR PRN IV PAIN Last administered on 01/15/19 17:43; Start 01/15/19 at 10:45 Ringer's Solution 1,000 ml @ 100 mls/hr Q10H IV Last administered on 01/16/19 03:02; Start 01/15/19 at 11:00 Iohexol (Omnipaque 300 Mg/ml) 100 ml STK-MED ONCE INT CAT Last administered on 01/15/19at 14:57; Start 01/15/19 at 14:57; Stop 01/15/19 at 15:35; Status DC Bupivacaine HCl/ Epinephrine Bitart (Sensorcain-Mpf Epi 0.5%-1:598794) 30 ml STK-MED ONCE INJ Last administered on 01/15/19at 14:57; Start 01/15/19 at 14:57; Stop 01/15/19 at 15:35; Status DC Propofol (Diprivan) 200 mg STK-MED ONCE IV ; Start 01/15/19 at 14:00; Stop 01/15/19 at 15:36; Status DC Lidocaine HCl (Lidocaine Pf 2% Vial) 5 ml STK-MED ONCE .ROUTE ; Start 01/15/19 at 14:00; Stop 01/15/19 at 15:36; Status DC Dexamethasone Sodium Phosphate (Decadron) 4 mg STK-MED ONCE .ROUTE ; Start 01/15/19 at 14:00; Stop 01/15/19 at 15:36; Status DC Ondansetron HCl (Zofran) 4 mg STK-MED ONCE .ROUTE ; Start 01/15/19 at 14:00; Stop 01/15/19 at 15:36; Status DC Rocuronium Jasper (Zemuron) 50 mg STK-MED ONCE .ROUTE ; Start 01/15/19 at 14:00; Stop 01/15/19 at 15:36; Status DC Midazolam HCl (Versed) 2 mg STK-MED ONCE .ROUTE ; Start 01/15/19 at 14:00; Stop 01/15/19 at 15:36; Status DC Fentanyl Citrate (Fentanyl 2ml Vial) 100 mcg STK-MED ONCE .ROUTE ; Start 01/15/19 at 14:00; Stop 01/15/19 at 15:36; Status DC Succinylcholine Chloride (Anectine) 200 mg STK-MED ONCE .ROUTE ; Start 01/15/19 at 14:00; Stop 01/15/19 at 15:36; Status DC Bupivacaine HCl/ Epinephrine Bitart (Sensorcain-Mpf Epi 0.5%-1:421328) 30 ml STK-MED ONCE .ROUTE ; Start 01/15/19 at 14:00; Stop 01/15/19 at 15:36; Status DC Iohexol (Omnipaque 300 Mg/ml) 50 ml STK-MED ONCE .ROUTE ; Start 01/15/19 at 14:00; Stop 01/15/19 at 15:36; Status DC Cellulose (Surgicel Hemostat 4x8) 1 each STK-MED ONCE .ROUTE Last administered on 01/15/19at 15:40; Start 01/15/19 at 14:00; Stop 01/15/19 at 15:37; Status DC Cellulose (Surgicel Hemostat 4x8) 1 each STK-MED ONCE TP Last administered on 01/15/19at 15:42; Start 01/15/19 at 15:42; Stop 01/15/19 at 15:45; Status DC Oxycodone/ Acetaminophen (Percocet 5/325) 1 tab PRN Q4HRS PRN PO MILD-MODERATE PAIN; Start 01/15/19 at 16:15 Oxycodone/ Acetaminophen (Percocet 5/325) 2 tab PRN Q4HRS PRN PO SEVERE PAIN Last administered on 01/16/19at 13:34; Start 01/15/19 at 16:30 Propofol 20 ml @ As Directed STK-MED ONCE IV ; Start 01/15/19 at 13:43; Stop 01/15/19 at 18:02; Status DC Lidocaine HCl (Lidocaine Pf 2% Vial) 5 ml STK-MED ONCE .ROUTE ; Start 01/15/19 at 13:43; Stop 01/15/19 at 18:02; Status DC Dexamethasone Sodium Phosphate (Decadron) 4 mg STK-MED ONCE .ROUTE ; Start 01/15/19 at 13:43; Stop 01/15/19 at 18:02; Status DC Ondansetron HCl (Zofran) 4 mg STK-MED ONCE .ROUTE ; Start 01/15/19 at 13:43; Stop 01/15/19 at 18:02; Status DC Rocuronium Jasper (Zemuron) 50 mg STK-MED ONCE .ROUTE ; Start 01/15/19 at 13:44; Stop 01/15/19 at 18:02; Status DC Midazolam HCl (Versed) 2 mg STK-MED ONCE .ROUTE ; Start 01/15/19 at 13:45; Stop 01/15/19 at 18:02; Status DC Fentanyl Citrate (Fentanyl 2ml Vial) 100 mcg STK-MED ONCE .ROUTE ; Start 01/15/19 at 13:46; Stop 01/15/19 at 18:02; Status DC Bupivacaine HCl/ Epinephrine Bitart (Sensorcain-Mpf Epi 0.5%-1:934785) 30 ml STK-MED ONCE .ROUTE ; Start 01/15/19 at 12:49; Stop 01/15/19 at 18:02; Status DC Iohexol (Omnipaque 300 Mg/ml) 50 ml STK-MED ONCE .ROUTE ; Start 01/15/19 at 12:50; Stop 01/15/19 at 18:02; Status DC Cellulose (Surgicel Hemostat 4x8) 1 each STK-MED ONCE .ROUTE ; Start 01/15/19 at 12:50; Stop 01/15/19 at 18:02; Status DC Succinylcholine Chloride (Anectine) 200 mg STK-MED ONCE .ROUTE ; Start 01/15/19 at 14:03; Stop 01/15/19 at 18:02; Status DC Fentanyl Citrate (Fentanyl 2ml Vial) 100 mcg STK-MED ONCE .ROUTE ; Start 01/15/19 at 14:40; Stop 01/15/19 at 18:03; Status DC Neostigmine Methylsulfate (Neostigmine Methylsulfate) 5 mg STK-MED ONCE .ROUTE ; Start 01/15/19 at 14:53; Stop 01/15/19 at 18:03; Status DC Glycopyrrolate (Robinul) 1 mg STK-MED ONCE .ROUTE ; Start 01/15/19 at 14:53; Stop 01/15/19 at 18:03; Status DC Cellulose (Surgicel Hemostat 4x8) 1 each STK-MED ONCE .ROUTE ; Start 01/15/19 at 14:42; Stop 01/15/19 at 18:04; Status DC Docusate Sodium (Colace) 100 mg DAILY PO ; Start 01/16/19 at 15:00 Polyethylene Glycol (miraLAX PACKET) 17 gm 1X ONCE PO ; Start 01/16/19 at 15:00; Stop 01/16/19 at 15:01; Status DC Active Scripts Active Percocet 5-325 Mg Tablet (Oxycodone/Acetaminophen) 1 Each Tablet 1 Tab PO PRN Q4HRS PRN Vitals/I & O Vital Sign - Last 24 Hours 01/15/19 01/15/19 01/15/19 01/15/19 16:20 16:20 16:37 16:52 Temp 99.2 99.2 99.2 99.2 Pulse 108 90 90 Resp 18 22 20 B/P (MAP) 175/83 158/81 155/78 Pulse Ox 97 100 99 O2 Delivery Simple Mask Mask Simple Mask Simple Mask O2 Flow Rate 10 10 10 10 01/15/19 01/15/19 01/15/19 01/15/19 17:07 17:22 17:43 17:45 Temp 99.2 99.2 99.2 99.2 Pulse 93 91 Resp 20 22 18 B/P (MAP) 140/81 141/79 154/84 (107) Pulse Ox 96 94 96 O2 Delivery Room Air Room Air Room Air Room Air 01/15/19 01/15/19 01/15/19 01/15/19 18:00 18:15 18:30 18:45 Resp 18 18 18 18 B/P (MAP) 144/81 (102) 168/96 (120) 144/84 (104) 140/98 (112) Pulse Ox 97 96 96 95 O2 Delivery Room Air Room Air Room Air Room Air 01/15/19 01/15/19 01/15/19 01/15/19 19:08 19:15 19:45 19:50 Temp 99.3 99.3 Pulse 94 105 Resp 18 18 B/P (MAP) 140/86 (104) 134/79 (97) Pulse Ox 98 97 O2 Delivery Room Air Room Air Room Air 01/15/19 01/15/19 01/15/19 01/16/19 20:45 21:45 23:00 03:00 Temp 98.6 98.5 98.6 98.5 Pulse 105 100 102 78 Resp 16 16 B/P (MAP) 141/87 (105) 139/90 (106) 139/86 (103) 135/80 (98) Pulse Ox 96 95 97 95 O2 Delivery Room Air Room Air 01/16/19 01/16/19 01/16/19 01/16/19 06:17 07:00 07:17 07:40 Temp 98.5 98.5 Pulse 71 Resp 20 18 20 B/P (MAP) 121/76 (91) Pulse Ox 96 O2 Delivery Room Air Room Air Room Air Room Air 01/16/19 01/16/19 11:00 13:34 Temp 98.5 98.5 Pulse 82 Resp 18 B/P (MAP) 134/79 (97) Pulse Ox 97 O2 Delivery Room Air Room Air Intake and Output 01/15/19 01/15/19 01/16/19 15:00 23:00 07:00 Intake Total 50 ml 520 ml 1940 ml Output Total 300 ml 400 ml Balance 50 ml 220 ml 1540 ml ANDRZEJ MAC MD Jan 16, 2019 16:16
[2019-01-16] MEDS: DOCUSATE SODIUM 100 MG CAPSULE. PO SCH (17:14)
[2019-01-16 19:00] VITALS: BP 139/76
[2019-01-16 23:00] VITALS: BP 117/68
[2019-01-17] MEDS: PIPERACILLIN/TAZOBACTAM 3.375 GM in IV NORMAL SALINE 50ML 50 ML IV SCH ×2 (00:07→05:43)
[2019-01-17 03:00] VITALS: BP 132/67
[2019-01-17] MEDS: IV RINGERS,LACTATED 1000ML 1,000 ML IV SCH (03:00)
[2019-01-17 07:25] VITALS: BP 134/76
[2019-01-17] MEDS: DOCUSATE SODIUM 100 MG CAPSULE. PO SCH (08:36)
--- NOTE | 2019-01-17 09:16 | PDOC3 ---
Discharge Summary Visit Information Date of Admission: Jan 15, 2019 Date of Discharge: Jan 17, 2019 Final Diagnosis Nausea and vomiting - with ruq pain, cholecystitis, + SIRS, Sepsis - from gallbladder infection, zosyn, given IVF resuscitation Left hydronephrosis - with non-obstructing nephrolithiasis, has previously passed a stone, likely has strictures secondary to this, will f/u with Urology outpatient tobacco use, Smoker - offered nicotine patch, Occult blood positive - Problems Medical Problems: (1) Abdominal pain Status: Acute (2) Acute cholecystitis Status: Acute (3) Hematemesis Status: Acute (4) Hydronephrosis Status: Acute (5) Hypertension Status: Acute Brief Hospital Course Allergies Allergies Coded Allergies Type Severity Reaction Last Updated Verified Fish Containing Products Allergy Intermediate 01/15/19 Yes Iodine and Iodide Containing Produc Allergy Intermediate 01/15/19 Yes shellfish derived Allergy Intermediate 01/15/19 Yes Vital Signs Vital Signs Date Time Temp Pulse Resp B/P (MAP) Pulse Ox O2 Delivery O2 Flow Rate FiO2 01/17/19 08:00 Room Air 01/17/19 07:25 98.8 86 14 134/76 (95) 96 98.8 Brief Hospital Course Mr. Walker is a 53 old admti with n/v/ abd pain taken to the OR, 01/16,. acute temo, lap temo done he felt well, pain OK f/u gen surg for suture removal Discharge Information Condition at Discharge: Improved Follow Up: Weeks Disposition/Orders: D/C to Home Scheduled PRN Oxycodone/Apap 5-325 (Percocet 5-325 Mg Tablet ) 1 Each Tablet, 1 TAB PO PRN Q4HRS PRN for MILD-MODERATE PAIN, #25 Prescribed by: DARIA HAYES on 01/16/19 1508 DARIA HAYES MD Jan 17, 2019 09:16
--- NOTE | 2019-01-17 10:48 | NUR ---
Discharge instructions and belongings reviewed with patient, verbalized understanding. Patient was escorted out via wheelchair by Maureen GIBBS accompanied by his .
--- NOTE | 2019-01-18 09:10 | PATHOLOGY ---
[facility] Accession Number: [id number] . 01 Material submitted: . gallbladder - GALLBLADDER WITH CONTENTS . 01 Clinical history: . Acute cholecystitis . 02 Diagnosis: Gallbladder, laparoscopic cholecystectomy: - Cholelithiasis. - Acute necrotizing (gangrenous) and chronic cholecystitis. (JPM:detsiney; 01/17/2019) QMS/01/17/2019 . 02 Comment: There is no evidence of malignancy. . (JPM:destiney; 01/17/2019) . 02 Electronically signed: . Xavier Boykin MD, Pathologist NPI- [id number] . 01 Gross description: . The specimen is received in formalin labeled "Aaron, Todd, gallbladder with contents" and consists of an intact, green-gonzalez, and ragged gallbladder measuring 9.1 cm in length and up to 3.7 cm in diameter. The margin is inked black. Opening reveals a lumen filled with green sludge and multiple multifaceted to smooth green-yellow calculi measuring 6.3 x 5.6 x 1.4 cm in aggregate. The mucosa is dark brown-green and trabeculated with an average wall thickness of 0.3 cm. No masses are identified. Pourer Bull Ladle sections are submitted in A1-A2. (SDY; 01/16/2019) SYU/SYU . 02 Pathologist provided ICD-10: K80.13 . 02 CPT . 853245 Specimen Comment: A courtesy copy of this report has been sent to Specimen Comment: [phone], , . Specimen Comment: Report sent to ,DR WASHINGTON / DR MORALES Performed at: [address], [place], [place] [id number] MD Drew Elizalde MD Phone: [phone] Performed at: [address] [id number] MD Xavier Boykin MD Phone: [phone]
== END 2019-01-17 10:50 | disposition home or self-care (01) | DRG 854 ==
LOC: ER 04:56 → 4 NORTH 09:00
PROVIDERS: ADMIT Internal Medicine; ATTEND Internal Medicine
PROC: BF141ZZ Fluoroscopy of Gallbladder, Bile Ducts and Pancreatic Ducts using Low Osmolar Contrast (ICD-10-PCS; 2019-01-15)
PROC: 0FT44ZZ Resection of Gallbladder, Percutaneous Endoscopic Approach (ICD-10-PCS; principal; 2019-01-15 14:45)
DX: A41.9 Sepsis, unspecified organism (principal); N13.2 Hydronephrosis with renal and ureteral calculous obstruction; K81.0 Acute cholecystitis; F17.210 Nicotine dependence, cigarettes, uncomplicated; K52.9 Noninfective gastroenteritis and colitis, unspecified; K59.00 Constipation, unspecified; K82.8 Other specified diseases of gallbladder; Z91.041 Radiographic dye allergy status; Z91.013 Allergy to seafood; Z88.8 Allergy status to other drugs, medicaments and biological substances; Z80.0 Family history of malignant neoplasm of digestive organs; Z83.3 Family history of diabetes mellitus
CPT/HCPCS: 36415; 74176; 74300; 76705; 80053; 80307; 81001; 82274; 83690; 84484; 85025; 88304; 93005; 96365; 96375; 99406; A7015; C9113; J0330; J0360; J1100; J2001; J2250; J2270; J2405; J2543; J2704; J2710; J3010; J3490; J7030; J7120; Q9967; 99285-25